=== PATIENT | female | born 1960 | race American Indian/Alaskan Native ===

== ENCOUNTER 2017-03-14 19:56 | Inpatient (IN) | payer OTHER ==
--- NOTE | 2017-03-14 20:45 | ED PDOC ---
Syncope/Near Syncope/Dizziness Time Seen by Provider: 03/14/17 20:16 Chief Complaint (Nursing): Dizziness/Lightheaded History Per: Patient History/Exam Limitations: no limitations Onset/Duration Of Symptoms: Sudden Onset (just stuntman) Current Symptoms Are (Timing): Gone Now Associated Symptoms Preceding Syncopal Episode: Worse With Standing Seizure Or Post-ictal Symptoms: None Possible Causative Factor(s): Lightheaded W/Standing Fall Associated With With Symptoms: No Severity: Mild Additional History Per: Patient Additional Complaint(s): Patient was exiting the train at work and became very dizzy and staggered off train. Patient does not remember. NO loc. no head trauma Past Medical History Reviewed: Historical Data, Nursing Documentation, Vital Signs Vital Signs: Last Vital Signs Temp 97.7 F 03/14/17 19:59 Pulse 84 03/14/17 19:59 Resp 18 03/14/17 19:59 BP 160/85 H 03/14/17 19:59 Pulse Ox 98 03/14/17 19:59 - Medical History PMH: Anemia, HTN - Family History Family History: States: Unknown Family Hx - Living Arrangements Living Arrangements: With Family - Social History Current smoker - smoking cessation education provided: No - Allergies Allergies/Adverse Reactions: Allergies Allergy/AdvReac Type Severity Reaction Status Date / Time No Known Allergies Allergy Unverified 04/09/13 09:48 Review of Systems ROS Statement: Except As Marked, All Systems Reviewed And Found Negative Constitutional: Negative for: Fever, Chills Cardiovascular: Positive for: Light Headedness. Negative for: Chest Pain, Palpitations, Paroxysmal Noc. Dyspnea, Edema Respiratory: Negative for: Cough, Shortness of Breath Gastrointestinal: Negative for: Nausea, Vomiting, Abdominal Pain Neurological: Negative for: Weakness, Numbness, Confusion, Seizures, Altered Mental Status, Headache, Dizziness Physical Exam - Reviewed Nursing Documentation Reviewed: Yes Vital Signs Reviewed: Yes - Physical Exam Appears: Positive for: Well Head Exam: Positive for: ATRAUMATIC, NORMAL INSPECTION, NORMOCEPHALIC Eye Exam: Positive for: Normal appearance, EOMI, PERRL ENT: Positive for: Pharynx Is (clear,mmm) Neck: Positive for: Normal, Painless ROM, Supple. Negative for: Decreased ROM, Limited ROM Cardiovascular/Chest: Positive for: Regular Rate, Rhythm, Chest Non Tender. Negative for: Edema, Gallop, Murmur, Bradycardia, Tachycardia Respiratory: Positive for: Normal Breath Sounds. Negative for: Decreased Breath Sounds, Accessory Muscle Use, Crackles, Rales, Rhonchi, Stridor, Wheezing , Respiratory Distress Pulses-Radial (L): 2+ Pulses-Radial (R): 2+ Gastrointestinal/Abdominal: Positive for: Normal Exam, Bowel Sounds, Soft. Negative for: Tenderness Back: Positive for: Normal Inspection. Negative for: L CVA Tenderness, R CVA Tenderness Extremity: Positive for: Normal ROM. Negative for: Tenderness, Pedal Edema, Calf Tenderness, Capillary Refill, Deformity, Swelling Neurologic/Psych: Positive for: Alert, manager business systems II-XII, Oriented, Mood/Affect (calm) , Gait (steady). Negative for: Motor/Sensory Deficits, Aphasia, Facial Droop - Laboratory Results Result Diagrams: 03/14/17 20:55 03/14/17 20:55 - ECG ECG: Positive for: Interpreted By Me ECG Rhythm: Positive for: Normal QRS, Normal ST Segment, Sinus Rhythm. Negative for: ST/T Changes Interpretation Of Abn EKG: rate of 77, no evidence of ischemia O2 Sat by Pulse Oximetry: 98 Pulse Ox Interpretation: Normal - Radiology X-Ray: Interpreted by Me X-Ray Interpretation: No Acute Disease - Progress ED Course And Treament: ct findings reviewed with Dr arevalo, advise jeana and mri in the am. pt is comfortable and stable for tele discussed with Dr parnell. pt agree's with plan. Re-evaluation Time: 23:31 Condition: Improved Disposition - Clinical Impression Clinical Impression: Dizziness, Near syncope, Neoplasm of brain causing mass effect on adjacent structures - Patient ED Disposition Is Patient to be Admitted: Yes Counseled Patient/Family Regarding: Studies Performed, Diagnosis - Disposition Disposition Time: 23:32 Condition: STABLE Forms: Neptune (Occitan) - Pt Status Changed To: Hospital Disposition Of: Inpatient - Admit Certification Admit to Inpatient:: After my assessment, the patient will require hospitalization for at least two midnights. This is because of the severity of symptoms shown, intensity of services needed, and/or the medical risk in this patient being treated as an outpatient. - POA Present On Arrival: None
[2017-03-14 21:06] LABS: BASO % 0.3 % (0.0-2.0); EOS # 0.1 K/uL (0.0-0.7); EOS % 0.9 % (0.0-4.0); HEMATOCRIT 38.2 % (34.0-47.0); LYMPH # 2.7 K/uL (1.0-4.3); LYMPH % 36.4 % (20.0-40.0); MEAN CELL VOLUME 87.9 fl (81.0-99.0); MEAN CORPUSCULAR HEMOGLOBIN 29.4 pg (27.0-31.0); MEAN CORPUSCULAR HGB CONC 33.5 g/dL (33.0-37.0); MEAN PLATELET VOLUME 7.1 fl (7.2-11.7); MONO # 0.4 K/uL (0.0-0.8); MONO % 5.7 % (0.0-10.0); NEUT # 4.1 K/uL (1.8-7.0); NEUT % 56.7 % (50.0-75.0); NRBC % 0.1 % (0.0-0.0); RED CELL DISTRIBUTION WIDTH 13.6 % (11.5-14.5); WHITE BLOOD COUNT 7.3 K/uL (4.8-10.8)
[2017-03-14 21:15] LABS: ALB/GLOB RATIO 1.5 (1.0-2.1); ALKALINE PHOSPHATASE 66 U/L (38-126); ALT/SGPT 27 U/L (9-52); AST/SGOT 39 U/L (14-36); BILIRUBIN,TOTAL 0.7 mg/dl (0.2-1.3); BLOOD UREA NITROGEN 16 mg/dl (7-17); CALCIUM 9.2 mg/dL (8.4-10.2); CARBON DIOXIDE 31 mmol/L (22-30); CHLORIDE 97 mmol/L (98-107); GFR AFRICAN-AMERICAN > 60; GLUCOSE,RANDOM 93 mg/dL (65-105); LIPASE 73 U/L (23-300); MAGNESIUM 2.4 MG/DL (1.6-2.3); POTASSIUM 4.4 MMOL/L (3.6-5.0); SODIUM 139 mmol/l (132-148); TOTAL PROTEIN 7.8 G/DL (6.3-8.2)
[2017-03-14 21:31] LABS: RBC URINE < 1 /hpf (0-3); URINE BACTERIA RARE (<OCC); URINE BILIRUBIN NEGATIVE (NEGATIVE); URINE BLOOD NEGATIVE (NEGATIVE); URINE COLOR STRAW (YELLOW); URINE GLUCOSE (UA) NEG (Normal); URINE KETONE NEGATIVE (NEGATIVE); URINE LEUKOCYTE ESTERASE NEG Leu/uL (Negative); URINE PROTEIN NEGATIVE (NEGATIVE); URINE UROBILINOGEN 0.2-1.0 mg/dL (0.2-1.0); WBC URINE < 1 /hpf (0-5)
[2017-03-14] MEDS ORDERED: Dexamethasone 10 MG in Sodium Chloride 0.9% 50 ML IV ONE (21:54)
[2017-03-14] MEDS ORDERED: Dexamethasone 10 MG in Sodium Chloride 0.9% 50 ML IVPB STA (23:49)
[2017-03-15] MEDS: Dexamethasone 6 MG in Sodium Chloride 0.9% 50 ML IVPB SCH ×3 (05:20→16:18)
--- NOTE | 2017-03-15 08:33 | CT ---
PROCEDURE: CT HEAD WITHOUT CONTRAST. HISTORY: nr syncope COMPARISON: None available. TECHNIQUE: Axial computed tomography images were obtained through the head/brain without intravenous contrast. Radiation dose: Total exam DLP = 841.77 mGy-cm. This CT exam was performed using one or more of the following dose reduction techniques: Automated exposure control, adjustment of the mA and/or kV according to patient size, and/or use of iterative reconstruction technique. FINDINGS: HEMORRHAGE: No intracranial hemorrhage. BRAIN: There is approximately 5 x 4 centimeter mass lesion at the left lateral ventricle. The mass likely arise at the septum pellucidum at or adjacent to the left foramen of Monro and contains coarse calcification and foci of relatively low attenuation. Findings suspicious for neoplasm such as but not limited to ependymoma, central neurocytoma, subependymoma and subependymal giant cell astrocytoma. There is mild edema adjacent to the left lateral ventricle in the left temporal and frontal lobe. No atrophy or chronic microvascular ischemic changes. VENTRICLES: There is [id number] dilatation of the left lateral ventricle especially the mid and posterior portion. CALVARIUM: Unremarkable. PARANASAL SINUSES: Unremarkable as visualized. No significant inflammatory changes. MASTOID AIR CELLS: Unremarkable as visualized. No inflammatory changes. OTHER FINDINGS: None. IMPRESSION: 5 centimeter mass lesion contains coarse calcification at the left lateral ventricle likely arise from the septum pellucidum at or adjacent to the foramen of Joshua. The differential diagnosis includes but not limited to ependymoma, central neurocytoma, subependymoma and subependymal giant cell astrocytoma. Further assessment by enhanced MRI is recommended. Mild left lateral ventricle hydrocephalus prominent at the mid and posterior horn. Mild to moderate edema seen at the left frontal and temporal lobe adjacent to the left lateral ventricle likely due to acute hydrocephalus and or due to intraventricular mass. Preliminary report was submitted by [facility].
[2017-03-15] MEDS ORDERED: Gadodiamide 287 MG/ML VIAL (15ML) IV ONE (08:54)
[2017-03-15] MEDS ORDERED: Patient's Own Med (Olmesartan/Hydrochlorothiazide [Benicar Hct 40-12.5 Mg Tablet] 1 TAB) PO SCH (09:00)
[2017-03-15] MEDS ORDERED: AMLODIPINE BESYLATE PO SCH ×2 (09:00)
[2017-03-15] MEDS ORDERED: BENAZEPRIL PO SCH ×2 (09:00)
--- NOTE | 2017-03-15 10:16 | RAD ---
HISTORY: near syncope COMPARISON: No prior. FINDINGS: LUNGS: The lungs are well inflated and clear. PLEURA: No significant pleural effusion identified, no pneumothorax apparent. CARDIOVASCULAR: Normal. OSSEOUS STRUCTURES: No significant abnormalities. VISUALIZED UPPER ABDOMEN: Normal. OTHER FINDINGS: None. IMPRESSION: No active pulmonary disease.
--- NOTE | 2017-03-15 10:51 | MRI ---
PROCEDURE: MRI BRAIN WITH AND WITHOUT CONTRAST HISTORY: brain mass COMPARISON: Comparison is made to the previous CT dated 03/14/2017. TECHNIQUE: Multiplanar, multisequence MR images of the brain were obtained with and without intravenous contrast enhancement. 17 cc of Omniscan were injected intravenously. FINDINGS: HEMORRHAGE: Questionable trace left lateral intra ventricular hemorrhage. DWI: No evidence of acute or subacute infarctions. BRAIN PARENCHYMA: Again seen is a heterogeneous enhancing mass lesion contains small foci of cystic formation and foci of hypo intense T1 and T2 signal corresponding to the coarse calcifications seen in the previous CT. The mass is seen at the left lateral ventricle crossing the midline and compressing on the right lateral ventricle. The mass cannot be from the septum pellucidum and the lateral wall of the left lateral ventricle. The mass either obstructing or compressing on the foramen of Joshua. There is a fairly homogeneous enhancing mass lesion at the suprasellar region measures 15.3 x 13.1 millimeter. This mass cannot be from the optic chiasm and abuts the internal carotid arteries. The mass is seen at the midline and cannot be from the infundibulum without evidence of infundibular deviation. ENHANCEMENT: The above mentioned left intraventricular mass demonstrates heterogeneous enhancement. The suprasellar mass demonstrate fairly homogeneous enhancement. VENTRICLES: There is moderate dilatation of the mid and posterior portion of the left lateral ventricle including the temporal and occipital horns. The frontal horn of the left lateral ventricle is slightly dilated. CRANIUM: Unremarkable. ORBITS: Grossly unremarkable. PARANASAL SINUSES/MASTOIDS: Clear VASCULAR SYSTEM: Skull base flow voids intact. OTHER FINDINGS: None . IMPRESSION: Heterogeneous enhancing mass lesion contains small cystic formation and foci of calcification again noted at the left lateral ventricle measures 5.3 centimeter in the largest transverse diameter. The differential diagnosis again includes malignant neoplasm such as but not limited to ependymoma central neurocytoma, ependymal giant cell astrocytoma, neoplasm of the choroid plexus and intraventricular metastasis. The differential diagnosis also includes benign lesion such as meningioma. Homogeneous enhancing suprasellar midline mass lesion measures 1.5 x 1.3 centimeter cannot be from the optic chiasm . The differential diagnosis also includes neoplasm such as metastasis, hypothalamus -chiasmatic glioma, Ganglioglioma and Choristoma. The possibility of other tumor such as craniopharyngioma and germinoma is less likely. Moderately dilated left lateral ventricle including the mid portion, temporal and occipital horns and slightly dilated frontal horn of the left lateral ventricle.
--- NOTE | 2017-03-15 11:22 | CARD ---
APPROVED REPORT EKG Measurement Heart [id number] <Conclusion> Normal sinus rhythm Possible Left atrial enlargement Left ventricular hypertrophy Cannot rule out Septal infarct, age undetermined Abnormal ECG
[2017-03-15 19:47] VITALS: BP 129/50; PULSE 83; RESP 10; TEMP 98.8; O2SAT 100
[2017-03-15] MEDS ORDERED: Apap-Butalbital-Caffeine 325-50-40mg Tab PO SCH (22:00)
--- NOTE | 2017-03-15 23:42 | CON ---
DATE: 03/15/2017 CHIEF COMPLAINT: Dizziness and headache. HISTORY OF PRESENT ILLNESS: The patient is a 56-year-old woman with history of hypertension and anemia, who has been having diffuse pressure headaches over the past 4 weeks and was exiting the train and often became very dizzy and felt lightheaded, was staggering off the train, but no loss of conscious, no head trauma. She underwent an MRI of the brain in [facility], where the heterogenous enhancing mass containing some small cystic formation at foci of calcification again noted in the left lateral ventricle measuring 5.3 cm in the largest transverse diameter. There is a mild mass effect on the right lateral ventricle. Differential most likely this homogenous suprasellar mass lesion measured 1.5 x 1.3 cm and cannot be from the optic chiasm. There is a moderately dilated left lateral ventricle including the mid portion of the temporal and occipital horns certainly dilated, frontal horn of the left lateral ventricle, all could be consistent with a possible central neurocytoma versus glioma. Neurosurgery has evaluated the patient and both of us agreed for that she needs to be transferred to a tertiary care center where this form of procedure and operation is provided by an advanced neurosurgical team probably will be transferred to [facility], awaiting bed at this time. Currently, Romberg sign is negative. She has mild headache, but not diffuse, no vomiting. She is on Decadron 6 mg q. 6 hours. No difficulty with gait at this time. No dizziness. No nausea. PAST MEDICAL HISTORY: Hypertension, dyslipidemia and anemia. FAMILY HISTORY: Noncontributory. Her sister apparently had a mass in the past. SOCIAL HISTORY: No illicit drug use, smoking or ETOH abuse. ALLERGIES: NO KNOWN DRUG ALLERGIES. MEDICATIONS: Reviewed by nurse per reconciliation sheet. REVIEW OF SYSTEMS: A 14-point review of systems is negative except per the HPI. PHYSICAL EXAMINATION VITAL SIGNS: Temperature is 98.1, pulse rate of 81, blood pressure is 137/90, respiratory rate of 18, and oxygen saturation is 98% on room air. GENERAL: The patient is seen up in bed, in no acute distress. HEENT: Head is atraumatic and normocephalic. PERRLA. Extraocular muscles are intact. NECK: Supple. No JVD. No adenopathy noted. LUNGS: Clear to auscultation. No adventitious sounds. HEART: S1 and S2, normal rate and rhythm. No murmurs, rubs, or gallops. ABDOMEN: Soft, nontender, and nondistended. Bowel sounds are present. EXTREMITIES: No clubbing. No cyanosis. Peripheral pulses 2+ bilaterally. NEUROLOGIC: The patient is alert and oriented to person, place, month, and year. Speech is fluent without any errors. Cranial nerves II through XII are intact. Motor exam: Moves all extremities equally. Toes are downgoing bilaterally. Sensory exam: Light touch pinprick, proprioception, and vibration is intact. DTRs are 2+ throughout. Romberg is negative. LABORATORY DATA: Sodium is 139, potassium is 4.4, chloride is 97, carbon dioxide is 31, BUN of 16, creatinine of 0.7, random glucose 93. ASSESSMENT AND PLAN: This is a 56-year-old woman, who presented with history of hypertension and anemia, who has been having diffuse pressure headache for the past 4 weeks and was getting off the train, was dizzy and had staggering gait with no loss of consciousness, found to have heterogenous enhancing mass containing small cystic formation at foci of calcification, again measuring 5.3 cm in the largest transverse diameter and a homogenous enhancing suprasellar midline mass measuring 1.5 x 1.3 cm which cannot be from the optic chiasm with moderately dilated left lateral ventricle and some mass effect with differential consistent with ependymoma, central neurocytoma or possible glioma. At this time, I feel like she needs an aggressive neurosurgical intervention and I agree with neurosurgery, needs to be transferred to a higher tertiary care and heterogenous enhancing mass is likely the reason for diffuse pressure headaches and dizziness. At this time, I recommend; 1. Awaiting bed, transfer to [facility] for more advanced neurosurgical intervention. 2. Continue with dexamethasone 6 mg IV q. 6 hours. 3. Keep her blood pressure between 120-130 mmHg. 4. Continue Fioricet 1 tab p.o. q. 6 hours p.r.n. for acute onset of headache and continue current present medical management, awaiting for transfer. The patient needs to be transferred to [facility]. Thank you for this consult. Maurizio Balderas MD
--- NOTE | 2017-03-16 02:03 | CON ---
DATE: 03/15/2017 HISTORY OF PRESENT ILLNESS: Ms. Galo is a rather unfortunate 56-year-old lady who has been having rather severe headaches for the past month. Apparently, she had some blood work done, but never had an imaging done. The night of admission, was found a kind of confused, coming out of the train station, was taken by a friend to [place] [facility], where CT documented a rather large intracranial mass, she was admitted. Upon consultation with myself at that time, we placed her on IV Decadron with head of bed elevation. We planned to obtain an MRI with gadolinium in the morning which in fact she had. Interviewing her today, her symptoms are consistent with that above. In fact, she feels better since being placed on the steroids. PAST MEDICAL HISTORY: Relatively benign. The rest of her social history, medications, allergies reviewed in the EMR. PHYSICAL EXAMINATION: GENERAL: She is bright, awake, and alert. Her speech and mental status are within normal limits. HEENT: Pupils are equal and reactive. EOMs are full. NEUROLOGIC: Cranial nerves are intact. She has a very minimal right-sided drift. Good strength throughout. May have a little bit weakness in the right distal lower extremity. Gait was not tested. IMAGING STUDIES: Show a very large lobulated tumor occupied predominantly the left lateral ventricle both in the midportion invaginating across the midline into the right thigh with some unilateral left hydrocephalus. It is irregularly enhanced, it is partially cystic and partially calcified. IMPRESSION AND PLAN: A very unusual tumor mostly . I had a very long talk with the patient, I explained to her as she is in such a good neurological shape, with this type of a deep and very unusual tumor, I would recommend treatment in a facility that handles these more frequently with upgraded equipments such as neurosurgical intensive care unit, neuro navigational system, etc. I suggested perhaps transfer to [facility]. After some thought and consulting with her children, she accepted to go ahead and I have actually written down a process of making her arrangements for her to be transferred there for further care. Enrico Rodriguez MD
--- NOTE | 2017-03-16 02:57 | HP ---
HISTORY OF PRESENT ILLNESS: The patient is a 56-year-old female who was admitted via the emergency room following an episode of dizziness while she was getting off a train. She does not remember if she lost consciousness or had any form of head trauma, but has a past medical history of anemia and hypertension and headaches for the past 1 month. She had been worked up by her primary care and the outside with blood work but did not have a brain scan. The brain scan in the emergency room was compatible with a lesion in the brain, she was therefore admitted for workup and therapy of near syncope. PAST MEDICAL HISTORY: Remarkable for anemia and hypertension. FAMILY HISTORY: Unremarkable except for a cousin who had a brain tumor. REVIEW OF SYSTEMS: Essentially unremarkable. SOCIAL HISTORY: Does not smoke or drink. PHYSICAL EXAMINATION: GENERAL: The patient is alert, oriented, appears to be comfortable at present. VITAL SIGNS: Remarkable for blood pressure of 144/78 with a pulse of 79, respiratory rate is 20. She is afebrile. O2 saturation 96% on room air. SKIN: Shows fair turgor. HEENT: Pupils are equal and reactive to light and accommodation. JVP flat. Mouth shows fair hygiene. LUNGS: Clear. HEART: Regular. No murmurs or gallop. ABDOMEN: Soft, nontender. No organomegaly. EXTREMITIES: Shows no edema or cyanosis. CENTRAL NERVOUS SYSTEM: No gross deficits. LABORATORY DATA: WBC of 7.3, hemoglobin 12.8, platelet count of 278,000. Sodium 139, potassium 4.4, BUN of 16, creatinine 0.7. Magnesium level 2.4. AST 39. Toxicology, negative urine. MRI of the brain is remarkable for heterogeneous enhanced marked lesion, which contains more cystic formation noted at the left lateral ventricle measured about 5.3 cm in largest transverse diameter. DIFFERENTIAL DIAGNOSES: Include neoplasm, central neurocytoma, giant cell astrocytoma, heterogenous enhanced suprasellar midline marked lesion measuring 1.5 x 1.3 cm, cannot be from the optic chiasma. Differential diagnoses also includes neoplasm such as metastasis, hypothalamic-chiasmatic glioma, ganglioglioma, and choristoma. The possibility of further tumor, such as craniopharyngioma and germinoma is less likely. Moderately dilated left lateral ventricle including meet position temporal and occipital horns slightly dilated. Chest x-ray, no active pulmonary disease. EKG, normal sinus rhythm. Possible left atrial enlargement, left ventricular hypertrophy, cannot rule out septal infarct, age undetermined. IMPRESSION: Dizziness or near syncope secondary to brain lesion. PLAN: Neurosurgery evaluation. IV Decadron to decrease edema of the brain and hydrocephalus. The patient was seen by the neurosurgeon already and offered possible transferred to [facility] or in [place], [place], for appropriate therapy of brain lesion. She will discuss with her family and inform us of her decision. Ambrocio Mcneill MD
--- NOTE | 2017-03-16 10:40 | CP.PCM.DIS ---
Provider - Provider Date of Admission: 03/14/17 23:50 Attending physician: Ambrocio Mcneill MD Time Spent in preparation of Discharge (in minutes): 30 Diagnosis - Discharge Diagnosis (1) Dizziness Status: Acute (2) Near syncope Status: Acute (3) Neoplasm of brain causing mass effect on adjacent structures Status: Acute Hospital Course - Lab Results Lab Results: Most Recent Lab Values WBC 7.3 K/uL (4.8-10.8) 03/14/17 20:55 RBC 4.35 Mil/uL (3.80-5.20) 03/14/17 20:55 Hgb 12.8 g/dL (12.0-16.0) 03/14/17 20:55 Hct 38.2 % (34.0-47.0) 03/14/17 20:55 MCV 87.9 fl (81.0-99.0) 03/14/17 20:55 MCH 29.4 pg (27.0-31.0) 03/14/17 20:55 MCHC 33.5 g/dL (33.0-37.0) 03/14/17 20:55 RDW 13.6 % (11.5-14.5) 03/14/17 20:55 Plt Count 278 K/uL (130-400) 03/14/17 20:55 MPV 7.1 fl (7.2-11.7) L 03/14/17 20:55 Neut % (Auto) 56.7 % (50.0-75.0) 03/14/17 20:55 Lymph % (Auto) 36.4 % (20.0-40.0) 03/14/17 20:55 [place] % (Auto) 5.7 % (0.0-10.0) 03/14/17 20:55 Eos % (Auto) 0.9 % (0.0-4.0) 03/14/17 20:55 Baso % (Auto) 0.3 % (0.0-2.0) 03/14/17 20:55 Neut # 4.1 K/uL (1.8-7.0) 03/14/17 20:55 Lymph # 2.7 K/uL (1.0-4.3) 03/14/17 20:55 [place] # 0.4 K/uL (0.0-0.8) 03/14/17 20:55 Eos # 0.1 K/uL (0.0-0.7) 03/14/17 20:55 Baso # 0.0 K/uL (0.0-0.2) 03/14/17 20:55 PT 11.8 Seconds (9.8-13.1) 03/14/17 20:55 INR 1.1 (0.9-1.2) 03/14/17 20:55 APTT 29.0 Seconds (25.6-37.1) 03/14/17 20:55 Sodium 139 mmol/l (132-148) 03/14/17 20:55 Potassium 4.4 MMOL/L (3.6-5.0) 03/14/17 20:55 Chloride 97 mmol/L (98-107) L 03/14/17 20:55 Carbon Dioxide 31 mmol/L (22-30) H 03/14/17 20:55 Anion Gap 15 (10-20) 03/14/17 20:55 BUN 16 mg/dl (7-17) 03/14/17 20:55 Creatinine 0.7 mg/dL (0.7-1.2) 03/14/17 20:55 Est GFR ( Amer) > 60 03/14/17 20:55 Est GFR (Non-Af Amer) > 60 03/14/17 20:55 POC Glucose (mg/dL) 102 mg/dL (65-110) 03/14/17 20:19 Random Glucose 93 mg/dL (65-105) 03/14/17 20:55 Calcium 9.2 mg/dL (8.4-10.2) 03/14/17 20:55 Magnesium 2.4 MG/DL (1.6-2.3) H 03/14/17 20:55 Total Bilirubin 0.7 mg/dl (0.2-1.3) 03/14/17 20:55 AST 39 U/L (14-36) H 03/14/17 20:55 ALT 27 U/L (9-52) 03/14/17 20:55 Alkaline Phosphatase 66 U/L (38-126) 03/14/17 20:55 Troponin I < 0.0120 ng/mL (0.00-0.120) 03/14/17 20:55 Total Protein 7.8 G/DL (6.3-8.2) 03/14/17 20:55 Albumin 4.6 g/dL (3.5-5.0) 03/14/17 20:55 Globulin 3.2 gm/dL (2.2-3.9) 03/14/17 20:55 Albumin/Globulin Ratio 1.5 (1.0-2.1) 03/14/17 20:55 Lipase 73 U/L (23-300) 03/14/17 20:55 Urine Color Straw (YELLOW) 03/14/17 21:10 Urine Clarity Clear (Clear) 03/14/17 21:10 Urine pH 7.0 (5.0-8.0) 03/14/17 21:10 Ur Specific [place] 1.009 (1.003-1.030) 03/14/17 21:10 Urine Protein Negative mg/dL (NEGATIVE) 03/14/17 21:10 Urine Glucose (UA) Neg mg/dL (Normal) 03/14/17 21:10 Urine Ketones Negative mg/dL (NEGATIVE) 03/14/17 21:10 Urine Blood Negative (NEGATIVE) 03/14/17 21:10 Urine Nitrate Negative (NEGATIVE) 03/14/17 21:10 Urine Bilirubin Negative (NEGATIVE) 03/14/17 21:10 Urine Urobilinogen 0.2-1.0 mg/dL (0.2-1.0) 03/14/17 21:10 Ur Leukocyte Esterase Neg [place]/uL (Negative) 03/14/17 21:10 Urine RBC (Auto) < 1 /hpf (0-3) 03/14/17 21:10 Urine Microscopic WBC < 1 /hpf (0-5) 03/14/17 21:10 Ur Squamous Epith Cells 1 /hpf (0-5) 03/14/17 21:10 Urine Bacteria Rare (<OCC) 03/14/17 21:10 Urine Opiates Screen Negative (NEGATIVE) 03/14/17 21:30 Urine Methadone Screen Negative (NEGATIVE) 03/14/17 21:30 Ur Barbiturates Screen Negative (NEGATIVE) 03/14/17 21:30 Ur Phencyclidine Scrn Negative (NEGATIVE) 03/14/17 21:30 Ur Amphetamines Screen Negative (NEGATIVE) 03/14/17 21:30 U Benzodiazepines Scrn Negative (NEGATIVE) 03/14/17 21:30 U Oth Cocaine Metabols Negative (NEGATIVE) 03/14/17 21:30 U Cannabinoids Screen Negative (NEGATIVE) 03/14/17 21:30 - Hospital Course Hospital Course: DIZZINESS IMPROVED Discharge Exam - Head Exam Head Exam: ATRAUMATIC, NORMAL INSPECTION, NORMOCEPHALIC - Eye Exam Eye Exam: EOMI, Normal appearance, PERRL Pupil Exam: NORMAL ACCOMODATION, PERRL - GI/Abdominal Exam GI & Abdominal Exam: Normal Bowel Sounds - Rectal Exam Rectal Exam: NORMAL INSPECTION - Neurological Exam Neurological exam: Alert, CN II-XII Intact, Normal Gait, Oriented x3, Reflexes Normal - Psychiatric Exam Psychiatric exam: Normal Affect, Normal Mood - Skin Skin Exam: Dry, Intact, Normal Color, Warm Discharge Plan - Discharge Medications Prescriptions: Dexamethasone [Decadron] 4 mg IV DAILY #1 vial - Follow Up Plan Condition: STABLE Disposition: HOME/ ROUTINE Instructions: Near Syncope (ED) Additional Instructions: PATIENT FOR DISCHARGE TO [facility] UNDER THE CARE OF DR.JEFFREY BECK,NEURO SURGEON
== END 2017-03-15 21:05 | disposition short-term general hospital (02) | DRG 55 ==
LOC: H.ER 19:56 → H.ERHOLD 23:50 → H.TEL 03-15 01:01
PROVIDERS: ADMIT Internal Medicine Pulmonary Disease; ATTEND Internal Medicine Pulmonary Disease
DX: D49.6 Neoplasm of unspecified behavior of brain (principal); I10 Essential (primary) hypertension; E78.5 Hyperlipidemia, unspecified; R42 Dizziness and giddiness; D64.9 Anemia, unspecified; R51 Headache; R55 Syncope and collapse

== ENCOUNTER 2017-06-25 18:38 | Emergency (ER) | payer OTHER ==
--- NOTE | 2017-06-25 20:46 | ED PDOC ---
HPI: CCC, URI, Sore Throat Time Seen by Provider: 06/25/17 20:00 Chief Complaint (Nursing): Flu-like Symptoms Chief Complaint (Provider): Cough and fever History Per: Patient History/Exam Limitations: no limitations Onset/Duration Of Symptoms: Days (x1) Current Symptoms Are (Timing): Still Present Location Of Pain: denies: Throat Associated Symptoms: Fever, Cough (productive), Sputum (yellow), Other (body aches, malaise, generalized weakness). denies: Sore Throat Ear Symptoms: Bilateral: None Pain Scale Rating Of: 9 Additional Complaint(s): Rosalba Galo is a 56 year old female, with a past medical history of brain cancer, and hypertension, who presents to the emergency department complaining of a productive cough with yellow sputum and fever associated with shaking chills, body aches, malaise, fatigue, and generalized weakness onset for x1 week. Patient reports rhinorrhea but denies any sore throat. She has been only taking Robitussin. She had an MRI today to evaluate a brain mass and was told she had a fever. Patient has an oncologist in [email or web address]] who is following her for brain cancer. No further medical complaints. PMD: None provided. Past Medical History Reviewed: Historical Data, Nursing Documentation, Vital Signs Vital Signs: Last Vital Signs Temp 98.7 F 06/25/17 22:52 Pulse 85 06/25/17 22:52 Resp 19 06/25/17 22:52 BP 133/77 06/25/17 22:52 Pulse Ox 99 06/25/17 23:25 - Medical History PMH: Anemia, HTN Denies: HIV, Chronic Kidney Disease - Surgical History Other surgeries: hysterectomy and repair of intestinal perforation. - Family History Family History: States: Unknown Family Hx - Social History Current smoker - smoking cessation education provided: No Alcohol: None Drugs: Denies - Home Medications Home Medications: Ambulatory Orders Medication Instructions Recorded Acetaminophen/Butalbital/Caf 1 tab PO Q6 tab 03/15/17 [Fioricet] Amlodipine Besylate/Benazepril 1 tab PO DAILY 03/15/17 [Lotrel 5-10 mg Capsule] Dexamethasone [Decadron] 4 mg IV DAILY #1 vial 03/15/17 Home Med [Home Med] 03/15/17 Olmesartan/Hydrochlorothiazide 1 tab PO DAILY 03/15/17 [Benicar Hct 40-12.5 mg Tablet] Acetaminophen [Tylenol Extra 1,000 mg PO Q6 PRN #60 tablet 06/25/17 Strength] Albuterol HFA [Ventolin HFA 90 2 puff IH Q4H PRN #1 inh 06/25/17 mcg/actuation (8 g)] Azithromycin 1 tab PO DAILY #6 tab 06/25/17 Prednisone 50 mg PO DAILY #5 tablet 06/25/17 - Allergies Allergies/Adverse Reactions: Allergies Allergy/AdvReac Type Severity Reaction Status Date / Time No Known Allergies Allergy Verified 06/25/17 19:43 Review of Systems ROS Statement: Except As Marked, All Systems Reviewed And Found Negative (and as per HPI) Constitutional: Positive for: Fever, Chills, Weakness (generalized), Malaise, Other (body aches) ENT: Positive for: Nose Discharge (rhinorrhea). Negative for: Throat Pain Respiratory: Positive for: Cough (productive), Sputum (yellow) Neurological: Positive for: Weakness (Chronic. right sided due to brain mass. Gait unstable and uses cane) Physical Exam - Reviewed Nursing Documentation Reviewed: Yes Vital Signs Reviewed: Yes - Physical Exam Appears: Positive for: Non-toxic, No Acute Distress Head Exam: Positive for: ATRAUMATIC, NORMOCEPHALIC Skin: Positive for: Warm, Dry ENT: Positive for: Pharynx Is (clear) Neck: Positive for: Painless ROM, Supple Cardiovascular/Chest: Positive for: Regular Rate, Rhythm, Chest Non Tender. Negative for: Murmur Respiratory: Positive for: Normal Breath Sounds. Negative for: Rales, Wheezing , Respiratory Distress Gastrointestinal/Abdominal: Positive for: Soft. Negative for: Tenderness Back: Positive for: Normal Inspection Neurologic/Psych: Positive for: Alert, Oriented (x3), Mood/Affect (normal/flat) - Laboratory Results Result Diagrams: 06/25/17 21:28 06/25/17 21:28 - ECG O2 Sat by Pulse Oximetry: 100 (RA) Pulse Ox Interpretation: Normal Medical Decision Making Medical Decision Making: Initial Impression: Cough and fever. Differential includes but not limited to: pneumonia, influenza, bronchitis, sepsis and dehydration. Initial Plan: --VBG Shock Panel --EKG --Comp metabolic Panel --Magnesium --Phosphorus --CBC w/ differential --PTT --PT --Chest two views (PA/LAT) [RAD] --Tylenol 975 mg PO --Toradol 15 mg IV --NS IV 1,000 ml @ 2,000 mls/hr --Blood culture --Urine culture --Influenza A B --Urinalysis Labs and CXR unremarkable. Scribe Attestation: Documented by Robert Kong, acting as a scribe for Idalia Mendez MD Provider Scribe Attestation: All medical record entries made by the Scribe were at my direction and personally dictated by me. I have reviewed the chart and agree that the record accurately reflects my personal performance of the history, physical exam, medical decision making, and the department course for this patient. I have also personally directed, reviewed, and agree with the discharge instructions and disposition. Disposition - Clinical Impression Clinical Impression: Influenza-like symptoms, Bronchitis Counseled Patient/Family Regarding: Studies Performed, Diagnosis, Need For Followup, Rx Given - Disposition Referrals: [facility] [Outside] [facility] [Outside] (FOLLOW UP WITH A PMD OR [facility] IN 24-48 HOURS FOR REEVALUATION) Disposition: Routine/Home Disposition Time: 22:00 Condition: IMPROVED Additional Instructions: REST AND DRINK PLENTY OF HYDRATING FLUIDS TAKE MEDICATIONS PRESCRIBED RETURN TO ER FOR WORSENING SYMPTOMS Prescriptions: Acetaminophen [Tylenol Extra Strength] 1,000 mg PO Q6 PRN #60 tablet PRN Reason: Fever >100.4 F Albuterol HFA [Ventolin HFA 90 mcg/actuation (8 g)] 2 puff IH Q4H PRN #1 inh PRN Reason: ASTHMA Azithromycin 1 tab PO DAILY #6 tab Prednisone 50 mg PO DAILY #5 tablet Instructions: Acute Bronchitis (ED), Viral Syndrome (ED)
[2017-06-25 21:33] LABS: BASO % 0.6 % (0.0-2.0); EOS % 0.2 % (0.0-4.0); HEMATOCRIT 32.8 % (34.0-47.0); LYMPH # 0.6 K/uL (1.0-4.3); LYMPH % 11.7 % (20.0-40.0); MEAN CELL VOLUME 91.2 fl (81.0-99.0); MEAN CORPUSCULAR HGB CONC 32.9 g/dL (33.0-37.0); MEAN PLATELET VOLUME 7.1 fl (7.2-11.7); MONO # 0.7 K/uL (0.0-0.8); MONO % 13.6 % (0.0-10.0); NEUT # 3.9 K/uL (1.8-7.0); NEUT % 73.9 % (50.0-75.0); NRBC % 0.1 % (0.0-0.0); RED CELL DISTRIBUTION WIDTH 14.4 % (11.5-14.5); WHITE BLOOD COUNT 5.3 K/uL (4.8-10.8)
[2017-06-25 21:49] LABS: ALB/GLOB RATIO 1.2 (1.0-2.1); ALKALINE PHOSPHATASE 63 U/L (38-126); ALT/SGPT 44 U/L (9-52); AST/SGOT 45 U/L (14-36); BILIRUBIN,TOTAL 0.5 mg/dl (0.2-1.3); BLOOD UREA NITROGEN 11 mg/dl (7-17); CALCIUM 9.2 mg/dL (8.4-10.2); CARBON DIOXIDE 34 mmol/L (22-30); CHLORIDE 94 mmol/L (98-107); GFR AFRICAN-AMERICAN > 60; GLUCOSE,RANDOM 111 mg/dL (65-105); PHOSPHOROUS 3.6 mg/dl (2.5-4.5); POTASSIUM 3.5 MMOL/L (3.6-5.0); SODIUM 137 mmol/l (132-148); TOTAL PROTEIN 7.5 G/DL (6.3-8.2)
[2017-06-25 21:50] LABS: VENOUS BLOOD GAS BASE EXCESS 10.7 mmol/L (0.0-2.0); VENOUS BLOOD GAS PCO2 56 mmHg (40-60); VENOUS BLOOD PH 7.43 (7.32-7.43)
[2017-06-25] MEDS: Sodium Chloride 0.9% 1,000 ML IV STA ×2 (21:51→22:58)
[2017-06-25 22:54] VITALS: BP 133/77; PULSE 85; RESP 19; TEMP 98.7
--- NOTE | 2017-06-26 10:35 | RAD ---
HISTORY: Sepsis Patient COMPARISON: Chest radiograph dated 03/14/2017. TECHNIQUE: Chest PA and lateral FINDINGS: LUNGS: No active pulmonary disease. PLEURA: No significant pleural effusion identified. No pneumothorax apparent. CARDIOVASCULAR: Normal. OSSEOUS STRUCTURES: No significant abnormalities. VISUALIZED UPPER ABDOMEN: Right upper quadrant surgical clips redemonstrated. OTHER FINDINGS: None. IMPRESSION: No active disease.
--- NOTE | 2017-06-26 11:17 | CARD ---
APPROVED REPORT EKG Measurement Heart [id number] <Conclusion> Normal sinus rhythm Possible Left atrial enlargement Left ventricular hypertrophy Cannot rule out Septal infarct, age undetermined Abnormal ECG
[2017-06-28 20:03] VITALS: O2SAT 100
== END 2017-06-25 23:10 | disposition home or self-care (01) ==
LOC: H.ER 18:38
DX: J40 Bronchitis, not specified as acute or chronic (principal); I10 Essential (primary) hypertension; Z90.710 Acquired absence of both cervix and uterus
CPT/HCPCS: 71020; 80053; 82803; 83735; 84100; 85025; 85610; 85730; 87040; 87804; 93005; 96374; 99284; J1885; J7040

== ENCOUNTER 2017-12-17 11:52 | Inpatient (IN) | payer OTHER ==
--- NOTE | 2017-12-17 12:45 | ED PDOC ---
HPI: General Adult Time Seen by Provider: 12/17/17 12:10 Chief Complaint (Nursing): Weakness/Neurological Deficit Chief Complaint (Provider): Weakness/Neurological Deficit History Per: Patient History/Exam Limitations: no limitations Onset/Duration Of Symptoms: Days (x 2) Additional Complaint(s): 57 year old female with a history of metastatic breast and brain cancer presents to the ED with generalized weakness. She states she fell 2 days ago and that her baseline is usually unsteady. Patient reports she was sent here by her PMD for a low WBC count. Her last chemotherapy treatment and blood work was last Saturday. She denies any bleeding, fever, chest pain and headache. PMD: Dr. Naseem Conroy Past Medical History Reviewed: Historical Data, Nursing Documentation, Vital Signs Vital Signs: Last Vital Signs Temp 99 F 12/17/17 15:44 Pulse 99 H 12/17/17 15:44 Resp 19 12/17/17 15:44 BP 156/90 H 12/17/17 15:44 Pulse Ox 98 12/17/17 15:42 - Medical History PMH: Anemia, Diabetes, HTN Denies: HIV, Chronic Kidney Disease Other PMH: Breast CA with brain mets - Surgical History Surgical History: No Surg Hx - Family History Family History: States: Unknown Family Hx - Home Medications Home Medications: Ambulatory Orders Medication Instructions Recorded Aspirin [Ecotrin] 81 mg PO DAILY 12/17/17 Dexamethasone [Decadron] 2 mg PO BID 12/17/17 Famotidine [Pepcid] 20 mg PO Q12 12/17/17 MetFORMIN [glucoPHAGE] 1,000 mg PO BID 12/17/17 Olmesartan Medoxomil [Benicar] 10 mg PO DAILY 12/17/17 Rosuvastatin Calcium [Crestor] 10 mg PO HS 12/17/17 SITagliptin [Januvia] 50 mg PO DAILY 12/17/17 amLODIPine [Norvasc] 10 mg PO QPM 12/17/17 levETIRAcetam [Keppra] 500 mg PO Q12 12/17/17 - Allergies Allergies/Adverse Reactions: Allergies Allergy/AdvReac Type Severity Reaction Status Date / Time No Known Allergies Allergy Verified 06/25/17 19:43 Review of Systems ROS Statement: Except As Marked, All Systems Reviewed And Found Negative Constitutional: Positive for: Other (low WBC and generalized weakness). Negative for: Fever Cardiovascular: Negative for: Chest Pain Neurological: Negative for: Headache Physical Exam - Reviewed Nursing Documentation Reviewed: Yes Vital Signs Reviewed: Yes - Physical Exam Appears: Positive for: Non-toxic, No Acute Distress Head Exam: Positive for: ATRAUMATIC, NORMAL INSPECTION, NORMOCEPHALIC Skin: Positive for: Normal Color, Warm, DRY Eye Exam: Positive for: EOMI, PERRL, Other (pale conjunctiva ) Neck: Positive for: Normal, Painless ROM, Supple Cardiovascular/Chest: Positive for: Tachycardia (mildly) Respiratory: Positive for: Normal Breath Sounds. Negative for: Respiratory Distress Gastrointestinal/Abdominal: Positive for: Normal Exam, Soft Extremity: Positive for: Normal ROM. Negative for: Deformity Neurologic/Psych: Positive for: Alert, Oriented. Negative for: Motor/Sensory Deficits - Laboratory Results Result Diagrams: 12/17/17 13:05 12/17/17 13:05 - ECG O2 Sat by Pulse Oximetry: 98 (RA) Pulse Ox Interpretation: Normal Medical Decision Making Medical Decision Making: Time; 12:42 Impression: neutropenia and pancytopenia from chemo r/o infectious source Initial Plan: --Blood type and screen --VBG --CMP --CBC --PTT --Prothrombin time --Blood cx --Urine cx --UA Patient will most likely require injection of Neulasta due to WBC of .5 L Time; 13:21 --ABG --Insulin 8 units IV --NS IV Time; 13:45 --discussed case with Dr. Lau as well as the patient. --Dr. Theodore Boss, medical assistant supervisor, will be consulted. Patient will be admitted to Dr. Lau. Diagnosis is pancytopenia, hyperglycemia and neutropenia. Scribe Attestation: Documented by Casie Becker, acting as a scribe for Luis Wiseman MD Provider Scribe Attestation: All medical record entries made by the Scribe were at my direction and personally dictated by me. I have reviewed the chart and agree that the record accurately reflects my personal performance of the history, physical exam, medical decision making, and the department course for this patient. I have also personally directed, reviewed, and agree with the discharge instructions and disposition. Disposition - Clinical Impression Clinical Impression: Neutropenia, DM2 (diabetes mellitus, type 2), Uncontrolled diabetes mellitus - Patient ED Disposition Is Patient to be Admitted: Yes Discussed With Dr.: Sheldon Lau Doctor Will See Patient In The: Hospital Counseled Patient/Family Regarding: Studies Performed, Diagnosis - Disposition Disposition Time: 13:40 Condition: FAIR - Pt Status Changed To: Hospital Disposition Of: Inpatient - Admit Certification Admit to Inpatient:: After my assessment, the patient will require hospitalization for at least two midnights. This is because of the severity of symptoms shown, intensity of services needed, and/or the medical risk in this patient being treated as an outpatient. - POA Present On Arrival: Poor Glycemic Control
[2017-12-17 13:12] LABS: SQUAMOUS EPITHIAL < 1 /hpf (0-5); URINE BACTERIA RARE (<OCC); URINE BILIRUBIN NEGATIVE (NEGATIVE); URINE BLOOD NEGATIVE (NEGATIVE); URINE CLARITY CLEAR (Clear); URINE COLOR STRAW (YELLOW); URINE GLUCOSE (UA) >=500 mg/dL (Normal); URINE LEUKOCYTE ESTERASE NEG Leu/uL (Negative); URINE PROTEIN 30 mg/dL (NEGATIVE); URINE UROBILINOGEN 0.2-1.0 mg/dL (0.2-1.0)
[2017-12-17 13:13] LABS: EOS % 0.5 % (0.0-4.0); HEMOGLOBIN 9.7 g/dL (12.0-16.0); LYMPH # 0.4 K/uL (1.0-4.3); LYMPH % 88.4 % (20.0-40.0); MEAN CELL VOLUME 95.8 fl (81.0-99.0); MEAN CORPUSCULAR HEMOGLOBIN 32.7 pg (27.0-31.0); MEAN CORPUSCULAR HGB CONC 34.2 g/dL (33.0-37.0); MONO % 3.2 % (0.0-10.0); NEUT % 7.9 % (50.0-75.0); NRBC % 8.4 % (0.0-0.0); RBC 2.97 Mil/uL (3.80-5.20); RED CELL DISTRIBUTION WIDTH 18.4 % (11.5-14.5)
[2017-12-17 13:15] LABS: VENOUS BLOOD GAS BASE EXCESS 7.7 mmol/L (0.0-2.0); VENOUS BLOOD GAS PCO2 43 mmHg (40-60); VENOUS BLOOD GAS PO2 78 mm/Hg (30-55); VENOUS BLOOD PH 7.48 (7.32-7.43)
[2017-12-17] MEDS ORDERED: Sodium Chloride 0.9% 1,000 ML IV STA (13:21)
[2017-12-17] MEDS ORDERED: Insulin Regular 100 units/ml IV STA (13:22)
[2017-12-17 13:25] LABS: WHITE BLOOD COUNT 0.5 K/uL (4.8-10.8)
[2017-12-17 13:26] LABS: MEAN PLATELET VOLUME 8.1 fl (7.2-11.7)
[2017-12-17 13:27] LABS: ALB/GLOB RATIO 1.3 (1.0-2.1); ALBUMIN 3.8 g/dL (3.5-5.0); ALT/SGPT 229 U/L (9-52); AST/SGOT 150 U/L (14-36); BLOOD UREA NITROGEN 10 mg/dl (7-17); CALCIUM 9.5 mg/dL (8.4-10.2); GFR AFRICAN-AMERICAN > 60; GFR NON-AFRICAN AMERICAN > 60
[2017-12-17 13:39] LABS: ABG ALLEN TEST YES; ARTERIAL BLOOD GAS HCO3 32.1 mmol/L (21-28); ARTERIAL BLOOD GAS HEMOGLOBIN 10.5 g/dL (11.7-17.4); ARTERIAL BLOOD GAS PCO2 38 mm/Hg (35-45); ARTERIAL BLOOD GAS PH 7.54 (7.35-7.45); ARTERIAL BLOOD GAS PO2 90 mm/Hg (80-100); ARTERIAL BLOOD GAS TCO2 33.7 mmol/L (22-28)
[2017-12-17 13:42] LABS: PARTIAL THROMBOPLASTIN TIME 23.9 Seconds (25.6-37.1); PROTHROMBIN TIME 10.8 Seconds (9.8-13.1)
[2017-12-17] MEDS ORDERED: Insulin Regular 100 units/ml ONE (14:03)
--- NOTE | 2017-12-17 14:43 | CP.PCM.HP ---
History of Present Illness - History of Present Illness History of Present Illness: CC: Neutropenia HPI: 57 y/o woman w/ pmh of HTN, NIDDM2, stage IV brain cancer w/ metastases presents to ED for neutropenia. Patient reports she recently had chemotherapy 1 week ago and has been receiving chemo since 03/2017. Patient unsure of her baseline WBC. Patient reports general weakness but denies any pain or bleeding from gums, urine, or stool. Patient reports normal urination and regular bowel movements. Patient reports she was diagnosed w/ brain cancer over 1 year ago. Patient reports she follows up w/ PMD in [place] (Dr. Conroy). Patient denies headaches, chest pain, SOB, abdominal pain, nausea, vomiting, diarrhea, dysuria , or fever. PMD: Dr. Naseem Conroy PMH: HTN, NIDDM2, stage IV brain cancer w/ metastases meds: see med list allergies: NKDA PSH: cholecystectomy, appendectomy, hysterectomy, fibroidectomy, brain biopsy Fam: female cousin 2 months ago from breast cancer at age 57 SOC: denies smoking, alcohol, and drugs ROS: 12 points assessed and negative unless otherwise reported in HPI Present on Admission - Present on Admission Any Indicators Present on Admission: No History of DVT/PE: No History of Uncontrolled Diabetes: No Urinary Catheter: No Decubitus Ulcer Present: No Review of Systems - Review of Systems All systems: reviewed and no additional remarkable complaints except - Constitutional Constitutional: absent: Chills, Fever, Headache - EENT Eyes: absent: Change in Vision - Cardiovascular Cardiovascular: absent: Chest Pain, Palpitations - Respiratory Respiratory: absent: Cough, Dyspnea - Gastrointestinal Gastrointestinal: absent: Abdominal Pain, Diarrhea, Hematochezia, Melena, Vomiting - Genitourinary Genitourinary: absent: Dysuria - Reproductive: Female Reproductive:Female: S/P Hysterectomy - Menstruation Menstruation: S/P Hysterectomy - Integumentary Integumentary: absent: Rash - Neurological Neurological: absent: Dizziness, Headaches Past Patient History - Past Medical History & Family History Past Medical History?: Yes - Past Social History Smoking Status: Never Smoked - CARDIAC Hx Hypertension: Yes - PULMONARY Hx Respiratory Disorders: No - NEUROLOGICAL Hx Neurological Disorder: No Other/Comment: Brain CA - HEENT Hx HEENT Problems: No - RENAL Hx Chronic Kidney Disease: No - ENDOCRINE/METABOLIC Hx Endocrine Disorders: No - HEMATOLOGICAL/ONCOLOGICAL Hx Anemia: Yes Hx Human Immunodeficiency Virus (HIV): No - INTEGUMENTARY Hx Dermatological Problems: No - MUSCULOSKELETAL/RHEUMATOLOGICAL Hx Musculoskeletal Disorders: No Hx Falls: No - GASTROINTESTINAL Hx Gastrointestinal Disorders: No - GENITOURINARY/GYNECOLOGICAL Hx Genitourinary Disorders: No - PSYCHIATRIC Hx Substance Use: No - SURGICAL HISTORY Hx Surgeries: Yes Hx Hysterectomy: Yes Other/Comment: Fibroid removal - ANESTHESIA Hx Anesthesia: Yes Hx Anesthesia Reactions: No Hx Malignant Hyperthermia: No Meds Allergies/Adverse Reactions: Allergies Allergy/AdvReac Type Severity Reaction Status Date / Time No Known Allergies Allergy Verified 06/25/17 19:43 Physical Exam - Constitutional Appears: Non-toxic, No Acute Distress - Head Exam Head Exam: ATRAUMATIC, NORMAL INSPECTION, NORMOCEPHALIC - Eye Exam Eye Exam: Normal appearance - ENT Exam ENT Exam: Mucous Membranes Moist - Neck Exam Neck exam: Positive for: Full Rom. Negative for: Tenderness - Respiratory Exam Respiratory Exam: Clear to Auscultation Bilateral. absent: Accessory Muscle Use , Decreased Breath Sounds, Rales, Rhonchi, Wheezes, Respiratory Distress - Cardiovascular Exam Cardiovascular Exam: REGULAR RHYTHM, RRR. absent: Tachycardia - GI/Abdominal Exam GI & Abdominal Exam: Normal Bowel Sounds, Soft. absent: Distended, Tenderness - Rectal Exam Rectal Exam: Deferred - Extremities Exam Extremities exam: Positive for: normal inspection. Negative for: calf tenderness - Neurological Exam Neurological exam: Alert, Oriented x3 - Skin Skin Exam: Dry, Intact, Normal Color, Warm Results - Vital Signs Recent Vital Signs: Last Vital Signs Temp 98.9 F 12/17/17 11:56 Pulse 109 H 12/17/17 11:56 Resp 19 12/17/17 11:56 BP 144/98 H 12/17/17 11:56 Pulse Ox 98 12/17/17 14:35 - Labs Result Diagrams: 12/17/17 13:05 12/17/17 13:05 Labs: Laboratory Results - last 24 hr 12/17/17 12/17/17 12/17/17 12:54 13:05 13:05 WBC 0.5 L* D RBC 2.97 L Hgb 9.7 L Hct 28.4 L MCV 95.8 D MCH 32.7 H MCHC 34.2 RDW 18.4 H Plt Count 33 L D MPV 8.1 Neut % (Auto) 7.9 L Lymph % (Auto) 88.4 H [place] % (Auto) 3.2 Eos % (Auto) 0.5 Baso % (Auto) 0.0 Neut # (Auto) 0.0 L Lymph # (Auto) 0.4 L [place] # (Auto) 0.0 Eos # (Auto) 0.0 Baso # (Auto) 0.0 PT INR APTT pCO2 pO2 78 H HCO3 ABG pH ABG Total CO2 ABG O2 Saturation ABG O2 Content ABG Base Excess ABG Hemoglobin ABG Carboxyhemoglobin POC ABG HHb (Measured) ABG Methemoglobin ABG O2 Capacity [place] Test VBG pH 7.48 H VBG pCO2 43 VBG HCO3 30.9 VBG Total CO2 33.3 H VBG O2 Sat (Calc) 100.0 H VBG Base Excess 7.7 H VBG Potassium 4.3 A-a O2 Difference Hgb O2 Saturation Sodium 132.0 131 L Chloride 95.0 L 91 L Glucose 563 H* D Lactate 3.7 H FiO2 21.0 Blood Gas Comments Vbg Crit Value Called To Dayanna smith m.d. Crit Value Called By Shima Crit Value Read Back Y Blood Gas Notified Time 1314 Potassium 4.4 Carbon Dioxide 28 Anion Gap 16 BUN 10 Creatinine 0.4 L Est GFR ( Amer) > 60 Est GFR (Non-Af Amer) > 60 Random Glucose 540 H* D Calcium 9.5 Total Bilirubin 0.7 AST 150 H D ALT 229 H D Alkaline Phosphatase 176 H D Total Protein 6.8 Albumin 3.8 Globulin 3.0 Albumin/Globulin Ratio 1.3 Venous Blood Potassium 4.3 Urine Color Urine Clarity Urine pH Ur Specific [place] Urine Protein Urine Glucose (UA) Urine Ketones Urine Blood Urine Nitrate Urine Bilirubin Urine Urobilinogen Ur Leukocyte Esterase Urine RBC (Auto) Urine Microscopic WBC Ur Squamous Epith Cells Urine Bacteria Blood Type Antibody Screen BBK History Checked 12/17/17 12/17/17 12/17/17 13:05 13:09 13:14 WBC RBC Hgb Hct MCV MCH MCHC RDW Plt Count MPV Neut % (Auto) Lymph % (Auto) [place] % (Auto) Eos % (Auto) Baso % (Auto) Neut # (Auto) Lymph # (Auto) [place] # (Auto) Eos # (Auto) Baso # (Auto) PT 10.8 INR 1.0 APTT 23.9 L pCO2 pO2 HCO3 ABG pH ABG Total CO2 ABG O2 Saturation ABG O2 Content ABG Base Excess ABG Hemoglobin ABG Carboxyhemoglobin POC ABG HHb (Measured) ABG Methemoglobin ABG O2 Capacity [place] Test VBG pH VBG pCO2 VBG HCO3 VBG Total CO2 VBG O2 Sat (Calc) VBG Base Excess VBG Potassium A-a O2 Difference Hgb O2 Saturation Sodium Chloride Glucose Lactate FiO2 Blood Gas Comments Crit Value Called To Crit Value Called By Crit Value Read Back Blood Gas Notified Time Potassium Carbon Dioxide Anion Gap BUN Creatinine Est GFR ( Amer) Est GFR (Non-Af Amer) Random Glucose Calcium Total Bilirubin AST ALT Alkaline Phosphatase Total Protein Albumin Globulin Albumin/Globulin Ratio Venous Blood Potassium Urine Color Straw Urine Clarity Clear Urine pH 7.0 Ur Specific [place] 1.026 Urine Protein 30 Urine Glucose (UA) >=500 Urine Ketones Negative Urine Blood Negative Urine Nitrate Negative Urine Bilirubin Negative Urine Urobilinogen 0.2-1.0 Ur Leukocyte Esterase Neg Urine RBC (Auto) 1 Urine Microscopic WBC 13 H Ur Squamous Epith Cells < 1 Urine Bacteria Rare Blood Type B POSITIVE Antibody Screen Negative BBK History Checked Patient has bt 12/17/17 13:21 WBC RBC Hgb Hct MCV MCH MCHC RDW Plt Count MPV Neut % (Auto) Lymph % (Auto) [place] % (Auto) Eos % (Auto) Baso % (Auto) Neut # (Auto) Lymph # (Auto) [place] # (Auto) Eos # (Auto) Baso # (Auto) PT INR APTT pCO2 38 pO2 90 HCO3 32.1 H ABG pH 7.54 H ABG Total CO2 33.7 H ABG O2 Saturation 100.0 H ABG O2 Content 14.0 L ABG Base Excess 9.3 H ABG Hemoglobin 10.5 L ABG Carboxyhemoglobin 2.4 H POC ABG HHb (Measured) 0.0 ABG Methemoglobin 3.4 H ABG O2 Capacity 14.0 L [place] Test Yes VBG pH VBG pCO2 VBG HCO3 VBG Total CO2 VBG O2 Sat (Calc) VBG Base Excess VBG Potassium A-a O2 Difference 12.0 Hgb O2 Saturation 94.1 L Sodium Chloride Glucose Lactate FiO2 21.0 Blood Gas Comments Ra21% Crit Value Called To Peachy cruzrn Crit Value Called By Shima Crit Value Read Back Y Blood Gas Notified Time 1339 Potassium Carbon Dioxide Anion Gap BUN Creatinine Est GFR ( Amer) Est GFR (Non-Af Amer) Random Glucose Calcium Total Bilirubin AST ALT Alkaline Phosphatase Total Protein Albumin Globulin Albumin/Globulin Ratio Venous Blood Potassium Urine Color Urine Clarity Urine pH Ur Specific [place] Urine Protein Urine Glucose (UA) Urine Ketones Urine Blood Urine Nitrate Urine Bilirubin Urine Urobilinogen Ur Leukocyte Esterase Urine RBC (Auto) Urine Microscopic WBC Ur Squamous Epith Cells Urine Bacteria Blood Type Antibody Screen BBK History Checked Assessment & Plan (1) Neutropenia Status: Acute (2) Brain cancer Status: Chronic (3) HTN (hypertension) Status: Chronic (4) DM2 (diabetes mellitus, type 2) Status: Chronic - Assessment and Plan (Free Text) Plan: afebrile, tachycardic, normotensive Hematology/Oncology consult ordered for granix administration WBC 0.5 (5.3 in 06/2017) CBC: 0.5>9.7/28.4<33 CMP: 131/4.4, 91/28, 10/0.4, glucose 540, AST 150, ALT 229, alk phos 176 corrected Na: 138 given regular insulin 8 units in ED given bolus of IVF NS 1L c/w home medication insulin correction scale hypoglycemia protocol neutropenic isolation f/u CBC, CMP, blood culture, urine culture prophylactic measures: SCDs, no anticoagulation due to thrombocytopenia monitor for acute changes admit to Med/Surg
[2017-12-17] MEDS ORDERED: Glucagon Recombinant 1 mg Inj IM PRN (14:54)
[2017-12-17] MEDS ORDERED: Dextrose 50% SYRINGE Inj (50 ml) IV PRN (14:54)
[2017-12-17] MEDS: Sodium Chloride 0.9% 1,000 ML IV SCH (15:07)
[2017-12-17] MEDS: Insulin Lispro (humaLOG) 100 Units/ml Inj SC SCH ×2 (19:10→23:31)
[2017-12-17] MEDS: Tmp-Smz 800 mg-160 mg DS Tab PO SCH (21:37)
[2017-12-18 06:45] LABS: BASO % 0.6 % (0.0-2.0); EOS % 0.4 % (0.0-4.0); HEMOGLOBIN 9.3 g/dL (12.0-16.0); LYMPH # 0.3 K/uL (1.0-4.3); LYMPH % 77.2 % (20.0-40.0); MEAN CELL VOLUME 94.1 fl (81.0-99.0); MEAN CORPUSCULAR HEMOGLOBIN 32.7 pg (27.0-31.0); MEAN CORPUSCULAR HGB CONC 34.8 g/dL (33.0-37.0); MEAN PLATELET VOLUME 7.8 fl (7.2-11.7); MONO % 5.8 % (0.0-10.0); NEUT # 0.1 K/uL (1.8-7.0); NRBC % 9.1 % (0.0-0.0); RBC 2.84 Mil/uL (3.80-5.20); RED CELL DISTRIBUTION WIDTH 18.1 % (11.5-14.5)
[2017-12-18 06:51] LABS: WHITE BLOOD COUNT 0.4 K/uL (4.8-10.8)
[2017-12-18 07:47] LABS: ALB/GLOB RATIO 1.1 (1.0-2.1); ALBUMIN 3.6 g/dL (3.5-5.0); ALT/SGPT 186 U/L (9-52); AST/SGOT 89 U/L (14-36); BLOOD UREA NITROGEN 7 mg/dl (7-17); CALCIUM 8.9 mg/dL (8.4-10.2); GFR AFRICAN-AMERICAN > 60; GFR NON-AFRICAN AMERICAN > 60
[2017-12-18] MEDS: Insulin Lispro (humaLOG) 100 Units/ml Inj SC SCH ×4 (08:27→22:32)
[2017-12-18] MEDS: Tmp-Smz 800 mg-160 mg DS Tab PO SCH ×2 (08:30→21:29)
[2017-12-18] MEDS: Sodium Chloride 0.9% 1,000 ML IV SCH ×3 (08:31→21:00)
--- NOTE | 2017-12-18 10:06 | CP.PCM.CON ---
History of Present Illness - History of Present Illness History of Present Illness: This is a 57 yrs old female who is being treated for metastaric breast and brain he dhe cancer, Her last dose was 1 week ago, and she came to the ER with fever,chills and her CBC showed wbc count of 0.5. She did not have burning in the urine, cough or shortness of breath.. She was admitted for prophylactic antibiotics and Granix Past Patient History - Past Medical History & Family History Past Medical History?: Yes - Past Social History Smoking Status: Never Smoked - CARDIAC Hx Cardiac Disorders: Yes Hx Hypertension: Yes - PULMONARY Hx Respiratory Disorders: No - NEUROLOGICAL Hx Neurological Disorder: No Other/Comment: Brain CA - HEENT Hx HEENT Problems: No - RENAL Hx Chronic Kidney Disease: No - ENDOCRINE/METABOLIC Hx Endocrine Disorders: Yes Hx Diabetes Mellitus Type 2: Yes - HEMATOLOGICAL/ONCOLOGICAL Hx Blood Disorders: Yes Hx Anemia: Yes Hx Cancer: Yes (brain mets to spine) Hx Chemotherapy: Yes Hx Gum Bleeding: Yes Hx Human Immunodeficiency Virus (HIV): No - INTEGUMENTARY Hx Dermatological Problems: No - MUSCULOSKELETAL/RHEUMATOLOGICAL Hx Musculoskeletal Disorders: No Hx Falls: Yes - GASTROINTESTINAL Hx Gastrointestinal Disorders: No - GENITOURINARY/GYNECOLOGICAL Hx Genitourinary Disorders: No - PSYCHIATRIC Hx Substance Use: No - SURGICAL HISTORY Hx Surgeries: Yes Hx Cholecystectomy: Yes Hx Hysterectomy: Yes Other/Comment: Fibroid removal - ANESTHESIA Hx Anesthesia: Yes Hx Anesthesia Reactions: No Hx Malignant Hyperthermia: No Has any member of the family had a problem w/ anesthesia?: No Meds Allergies/Adverse Reactions: Allergies Allergy/AdvReac Type Severity Reaction Status Date / Time No Known Allergies Allergy Verified 06/25/17 19:43 - Medications Medications: Current Medications Amlodipine Besylate (Norvasc) 10 mg PO QPM [facility] Last Admin: 12/17/17 17:17 Dose: 10 mg Aspirin (Ecotrin) 81 mg PO DAILY [facility] Last Admin: 12/18/17 08:30 Dose: 81 mg Atorvastatin Calcium (Lipitor) 20 mg PO HS [facility] Last Admin: 12/17/17 21:36 Dose: 20 mg Dexamethasone (Decadron) 2 mg PO BID [facility] Last Admin: 12/18/17 08:29 Dose: 2 mg Dextrose (Dextrose 50% Inj) 0 ml IV STAT PRN; Protocol PRN Reason: Hypoglycemia Protocol Dextrose (Glutose 15) 0 gm PO ONCE PRN; Protocol PRN Reason: Hypoglycemia Protocol Famotidine (Pepcid) 20 mg PO Q12 [facility] Last Admin: 12/18/17 08:29 Dose: 20 mg Glucagon (Glucagen Diagnostic Kit) 0 mg IM STAT PRN; Protocol PRN Reason: Hypoglycemia Protocol Sodium Chloride (Sodium Chloride 0.9%) 1,000 mls @ 100 mls/hr IV .Q10H [facility] Last Admin: 12/18/17 08:31 Dose: 100 mls/hr Insulin Human Lispro (Humalog) 0 units SC ACHS SHANICE PRN Reason: Protocol Last Admin: 12/18/17 08:27 Dose: 3 units Levetiracetam (Keppra) 500 mg PO Q12 [facility] Last Admin: 12/18/17 08:29 Dose: 500 mg Losartan Potassium (Cozaar) 25 mg PO DAILY [facility] Last Admin: 12/18/17 08:30 Dose: 25 mg Metformin HCl (Glucophage) 1,000 mg PO BID [facility] Last Admin: 12/18/17 08:29 Dose: 1,000 mg Sitagliptin Phosphate (Januvia) 50 mg PO DAILY [facility] Last Admin: 12/18/17 08:30 Dose: 50 mg Trimethoprim/Sulfamethoxazole (Bactrim Ds Tab) 1 tab PO Q12 [facility] PRN Reason: Protocol Last Admin: 12/18/17 08:30 Dose: 1 tab Physical Exam - Additional Findings Additional findings: Physical Exam; Alert, well oriented in no acute distress neck; supple, no adenopathy chest; Clear, no rales or rhonchi Heart; RSR, no murmur Abd; soft, no mass, no h/s megaly Pt has a flat affect. Results - Vital Signs Recent Vital Signs: Last Vital Signs Temp 99.0 F 12/18/17 08:30 Pulse 98 H 12/18/17 08:30 Resp 20 12/18/17 08:30 BP 160/96 H 12/18/17 08:30 Pulse Ox 96 12/18/17 08:30 - Labs Result Diagrams: 12/18/17 05:30 12/18/17 05:30 Labs: Laboratory Results - last 24 hr 12/17/17 12/17/17 12/17/17 12:54 13:05 13:05 WBC 0.5 L* D RBC 2.97 L Hgb 9.7 L Hct 28.4 L MCV 95.8 D MCH 32.7 H MCHC 34.2 RDW 18.4 H Plt Count 33 L D MPV 8.1 Neut % (Auto) 7.9 L Lymph % (Auto) 88.4 H [place] % (Auto) 3.2 Eos % (Auto) 0.5 Baso % (Auto) 0.0 Neut # (Auto) 0.0 L Lymph # (Auto) 0.4 L [place] # (Auto) 0.0 Eos # (Auto) 0.0 Baso # (Auto) 0.0 Total Counted Cancelled Neutrophils % (Manual) Cancelled Band Neutrophils % Cancelled Lymphocytes % (Manual) Cancelled Reactive Lymphs % Cancelled Monocytes % (Manual) Cancelled Eosinophils % (Manual) Cancelled Basophils % (Manual) Cancelled Metamyelocytes % Cancelled Myelocytes % Cancelled Promyelocytes % Cancelled Blast Cells % Cancelled Plasma Cell % (Manual) Cancelled Nucleated RBC % Cancelled Hypersegmented Polys Cancelled Smudge Cells Cancelled Toxic Granulation Cancelled Dohle Bodies Cancelled Aaliyah Rods Cancelled Platelet Estimate Cancelled Plt Clumps, EDTA Cancelled Large Platelets Cancelled Giant Platelets Cancelled RBC Morphology Cancelled Polychromasia Cancelled Hypochromasia (manual) Cancelled Poikilocytosis (manual Cancelled Basophilic Stippling Cancelled Anisocytosis (manual) Cancelled Microcytosis (manual) Cancelled Macrocytosis (manual) Cancelled Spherocytes Cancelled Sickle Cells Cancelled Target Cells Cancelled Tear Drop Cells Cancelled Ovalocytes Cancelled Stomatocytes Cancelled Helmet Cells Cancelled [place] Bodies Cancelled Charlie Cells Cancelled Acanthocytes (Spur) Cancelled Rouleaux Cancelled Schistocytes Cancelled PT INR APTT pCO2 pO2 78 H HCO3 ABG pH ABG Total CO2 ABG O2 Saturation ABG O2 Content ABG Base Excess ABG Hemoglobin ABG Carboxyhemoglobin POC ABG HHb (Measured) ABG Methemoglobin ABG O2 Capacity [place] Test VBG pH 7.48 H VBG pCO2 43 VBG HCO3 30.9 VBG Total CO2 33.3 H VBG O2 Sat (Calc) 100.0 H VBG Base Excess 7.7 H VBG Potassium 4.3 A-a O2 Difference Hgb O2 Saturation Sodium 132.0 131 L Chloride 95.0 L 91 L Glucose 563 H* D Lactate 3.7 H FiO2 21.0 Blood Gas Comments Vbg Crit Value Called To Dayanna smith m.d. Crit Value Called By Shima Crit Value Read Back Y Blood Gas Notified Time 1314 Potassium 4.4 Carbon Dioxide 28 Anion Gap 16 BUN 10 Creatinine 0.4 L Est GFR ( Amer) > 60 Est GFR (Non-Af Amer) > 60 POC Glucose (mg/dL) Random Glucose 540 H* D Calcium 9.5 Total Bilirubin 0.7 AST 150 H D ALT 229 H D Alkaline Phosphatase 176 H D Total Protein 6.8 Albumin 3.8 Globulin 3.0 Albumin/Globulin Ratio 1.3 Venous Blood Potassium 4.3 Urine Color Urine Clarity Urine pH Ur Specific Martin Urine Protein Urine Glucose (UA) Urine Ketones Urine Blood Urine Nitrate Urine Bilirubin Urine Urobilinogen Ur Leukocyte Esterase Urine RBC (Auto) Urine Microscopic WBC Ur Squamous Epith Cells Urine Bacteria Blood Type Antibody Screen BBK History Checked 12/17/17 12/17/17 12/17/17 13:05 13:09 13:14 WBC RBC Hgb Hct MCV MCH MCHC RDW Plt Count MPV Neut % (Auto) Lymph % (Auto) [place] % (Auto) Eos % (Auto) Baso % (Auto) Neut # (Auto) Lymph # (Auto) [place] # (Auto) Eos # (Auto) Baso # (Auto) Total Counted Neutrophils % (Manual) Band Neutrophils % Lymphocytes % (Manual) Reactive Lymphs % Monocytes % (Manual) Eosinophils % (Manual) Basophils % (Manual) Metamyelocytes % Myelocytes % Promyelocytes % Blast Cells % Plasma Cell % (Manual) Nucleated RBC % Hypersegmented Polys Smudge Cells Toxic Granulation Dohle Bodies Aaliyah Rods Platelet Estimate Plt Clumps, EDTA Large Platelets Giant Platelets RBC Morphology Polychromasia Hypochromasia (manual) Poikilocytosis (manual Basophilic Stippling Anisocytosis (manual) Microcytosis (manual) Macrocytosis (manual) Spherocytes Sickle Cells Target Cells Tear Drop Cells Ovalocytes Stomatocytes Helmet Cells [place] Bodies [place] Cells Acanthocytes (Spur) Rouleaux Schistocytes PT 10.8 INR 1.0 APTT 23.9 L pCO2 pO2 HCO3 ABG pH ABG Total CO2 ABG O2 Saturation ABG O2 Content ABG Base Excess ABG Hemoglobin ABG Carboxyhemoglobin POC ABG HHb (Measured) ABG Methemoglobin ABG O2 Capacity [place] Test VBG pH VBG pCO2 VBG HCO3 VBG Total CO2 VBG O2 Sat (Calc) VBG Base Excess VBG Potassium A-a O2 Difference Hgb O2 Saturation Sodium Chloride Glucose Lactate FiO2 Blood Gas Comments Crit Value Called To Crit Value Called By Crit Value Read Back Blood Gas Notified Time Potassium Carbon Dioxide Anion Gap BUN Creatinine Est GFR ( Amer) Est GFR (Non-Af Amer) POC Glucose (mg/dL) Random Glucose Calcium Total Bilirubin AST ALT Alkaline Phosphatase Total Protein Albumin Globulin Albumin/Globulin Ratio Venous Blood Potassium Urine Color Straw Urine Clarity Clear Urine pH 7.0 Ur Specific Martin 1.026 Urine Protein 30 Urine Glucose (UA) >=500 Urine Ketones Negative Urine Blood Negative Urine Nitrate Negative Urine Bilirubin Negative Urine Urobilinogen 0.2-1.0 Ur Leukocyte Esterase Neg Urine RBC (Auto) 1 Urine Microscopic WBC 13 H Ur Squamous Epith Cells < 1 Urine Bacteria Rare Blood Type B POSITIVE Antibody Screen Negative BBK History Checked Patient has bt 12/17/17 12/17/17 12/17/17 13:21 15:10 15:21 WBC RBC Hgb Hct MCV MCH MCHC RDW Plt Count MPV Neut % (Auto) Lymph % (Auto) [place] % (Auto) Eos % (Auto) Baso % (Auto) Neut # (Auto) Lymph # (Auto) [place] # (Auto) Eos # (Auto) Baso # (Auto) Total Counted Neutrophils % (Manual) Band Neutrophils % Lymphocytes % (Manual) Reactive Lymphs % Monocytes % (Manual) Eosinophils % (Manual) Basophils % (Manual) Metamyelocytes % Myelocytes % Promyelocytes % Blast Cells % Plasma Cell % (Manual) Nucleated RBC % Hypersegmented Polys Smudge Cells Toxic Granulation Dohle Bodies Aaliyah Rods Platelet Estimate Plt Clumps, EDTA Large Platelets Giant Platelets RBC Morphology Polychromasia Hypochromasia (manual) Poikilocytosis (manual Basophilic Stippling Anisocytosis (manual) Microcytosis (manual) Macrocytosis (manual) Spherocytes Sickle Cells Target Cells Tear Drop Cells Ovalocytes Stomatocytes Helmet Cells [place] Bodies [place] Cells Acanthocytes (Spur) Rouleaux Schistocytes PT INR APTT pCO2 38 pO2 90 HCO3 32.1 H ABG pH 7.54 H ABG Total CO2 33.7 H ABG O2 Saturation 100.0 H ABG O2 Content 14.0 L ABG Base Excess 9.3 H ABG Hemoglobin 10.5 L ABG Carboxyhemoglobin 2.4 H POC ABG HHb (Measured) 0.0 ABG Methemoglobin 3.4 H ABG O2 Capacity 14.0 L [place] Test Yes VBG pH VBG pCO2 VBG HCO3 VBG Total CO2 VBG O2 Sat (Calc) VBG Base Excess VBG Potassium A-a O2 Difference 12.0 Hgb O2 Saturation 94.1 L Sodium Chloride Glucose Lactate FiO2 21.0 Blood Gas Comments Ra21% Crit Value Called To Dayanna vickers Crit Value Called By Shima Crit Value Read Back Y Blood Gas Notified Time 1339 Potassium Carbon Dioxide Anion Gap BUN Creatinine Est GFR ( Amer) Est GFR (Non-Af Amer) POC Glucose (mg/dL) 266 H 265 H Random Glucose Calcium Total Bilirubin AST ALT Alkaline Phosphatase Total Protein Albumin Globulin Albumin/Globulin Ratio Venous Blood Potassium Urine Color Urine Clarity Urine pH Ur Specific Martin Urine Protein Urine Glucose (UA) Urine Ketones Urine Blood Urine Nitrate Urine Bilirubin Urine Urobilinogen Ur Leukocyte Esterase Urine RBC (Auto) Urine Microscopic WBC Ur Squamous Epith Cells Urine Bacteria Blood Type Antibody Screen BBK History Checked 12/17/17 12/17/17 12/18/17 17:24 22:05 05:30 WBC 0.4 L* RBC 2.84 L Hgb 9.3 L Hct 26.7 L MCV 94.1 MCH 32.7 H MCHC 34.8 RDW 18.1 H Plt Count 38 L MPV 7.8 Neut % (Auto) 16.0 L Lymph % (Auto) 77.2 H [place] % (Auto) 5.8 Eos % (Auto) 0.4 Baso % (Auto) 0.6 Neut # (Auto) 0.1 L Lymph # (Auto) 0.3 L [place] # (Auto) 0.0 Eos # (Auto) 0.0 Baso # (Auto) 0.0 Total Counted Cancelled Neutrophils % (Manual) Cancelled Band Neutrophils % Cancelled Lymphocytes % (Manual) Cancelled Reactive Lymphs % Cancelled Monocytes % (Manual) Cancelled Eosinophils % (Manual) Cancelled Basophils % (Manual) Cancelled Metamyelocytes % Cancelled Myelocytes % Cancelled Promyelocytes % Cancelled Blast Cells % Cancelled Plasma Cell % (Manual) Cancelled Nucleated RBC % Cancelled Hypersegmented Polys Cancelled Smudge Cells Cancelled Toxic Granulation Cancelled Dohle Bodies Cancelled Aaliyah Rods Cancelled Platelet Estimate Cancelled Plt Clumps, EDTA Cancelled Large Platelets Cancelled Giant Platelets Cancelled RBC Morphology Cancelled Polychromasia Cancelled Hypochromasia (manual) Cancelled Poikilocytosis (manual Cancelled Basophilic Stippling Cancelled Anisocytosis (manual) Cancelled Microcytosis (manual) Cancelled Macrocytosis (manual) Cancelled Spherocytes Cancelled Sickle Cells Cancelled Target Cells Cancelled Tear Drop Cells Cancelled Ovalocytes Cancelled Stomatocytes Cancelled Helmet Cells Cancelled [place] Bodies Cancelled Charlie Cells Cancelled Acanthocytes (Spur) Cancelled Rouleaux Cancelled Schistocytes Cancelled PT INR APTT pCO2 pO2 HCO3 ABG pH ABG Total CO2 ABG O2 Saturation ABG O2 Content ABG Base Excess ABG Hemoglobin ABG Carboxyhemoglobin POC ABG HHb (Measured) ABG Methemoglobin ABG O2 Capacity [place] Test VBG pH VBG pCO2 VBG HCO3 VBG Total CO2 VBG O2 Sat (Calc) VBG Base Excess VBG Potassium A-a O2 Difference Hgb O2 Saturation Sodium Chloride Glucose Lactate FiO2 Blood Gas Comments Crit Value Called To Crit Value Called By Crit Value Read Back Blood Gas Notified Time Potassium Carbon Dioxide Anion Gap BUN Creatinine Est GFR ( Amer) Est GFR (Non-Af Amer) POC Glucose (mg/dL) 285 H 350 H Random Glucose Calcium Total Bilirubin AST ALT Alkaline Phosphatase Total Protein Albumin Globulin Albumin/Globulin Ratio Venous Blood Potassium Urine Color Urine Clarity Urine pH Ur Specific Martin Urine Protein Urine Glucose (UA) Urine Ketones Urine Blood Urine Nitrate Urine Bilirubin Urine Urobilinogen Ur Leukocyte Esterase Urine RBC (Auto) Urine Microscopic WBC Ur Squamous Epith Cells Urine Bacteria Blood Type Antibody Screen BBK History Checked 12/18/17 05:30 WBC RBC Hgb Hct MCV MCH MCHC RDW Plt Count MPV Neut % (Auto) Lymph % (Auto) [place] % (Auto) Eos % (Auto) Baso % (Auto) Neut # (Auto) Lymph # (Auto) [place] # (Auto) Eos # (Auto) Baso # (Auto) Total Counted Neutrophils % (Manual) Band Neutrophils % Lymphocytes % (Manual) Reactive Lymphs % Monocytes % (Manual) Eosinophils % (Manual) Basophils % (Manual) Metamyelocytes % Myelocytes % Promyelocytes % Blast Cells % Plasma Cell % (Manual) Nucleated RBC % Hypersegmented Polys Smudge Cells Toxic Granulation Dohle Bodies Aaliyah Rods Platelet Estimate Plt Clumps, EDTA Large Platelets Giant Platelets RBC Morphology Polychromasia Hypochromasia (manual) Poikilocytosis (manual Basophilic Stippling Anisocytosis (manual) Microcytosis (manual) Macrocytosis (manual) Spherocytes Sickle Cells Target Cells Tear Drop Cells Ovalocytes Stomatocytes Helmet Cells [place] Bodies [place] Cells Acanthocytes (Spur) Rouleaux Schistocytes PT INR APTT pCO2 pO2 HCO3 ABG pH ABG Total CO2 ABG O2 Saturation ABG O2 Content ABG Base Excess ABG Hemoglobin ABG Carboxyhemoglobin POC ABG HHb (Measured) ABG Methemoglobin ABG O2 Capacity [place] Test VBG pH VBG pCO2 VBG HCO3 VBG Total CO2 VBG O2 Sat (Calc) VBG Base Excess VBG Potassium A-a O2 Difference Hgb O2 Saturation Sodium 139 Chloride 100 Glucose Lactate FiO2 Blood Gas Comments Crit Value Called To Crit Value Called By Crit Value Read Back Blood Gas Notified Time Potassium 3.5 L Carbon Dioxide 29 Anion Gap 14 BUN 7 Creatinine 0.4 L Est GFR ( Amer) > 60 Est GFR (Non-Af Amer) > 60 POC Glucose (mg/dL) Random Glucose 261 H Calcium 8.9 Total Bilirubin 0.7 AST 89 H D ALT 186 H Alkaline Phosphatase 171 H Total Protein 6.7 Albumin 3.6 Globulin 3.1 Albumin/Globulin Ratio 1.1 Venous Blood Potassium Urine Color Urine Clarity Urine pH Ur Specific Martin Urine Protein Urine Glucose (UA) Urine Ketones Urine Blood Urine Nitrate Urine Bilirubin Urine Urobilinogen Ur Leukocyte Esterase Urine RBC (Auto) Urine Microscopic WBC Ur Squamous Epith Cells Urine Bacteria Blood Type Antibody Screen BBK History Checked Assessment & Plan - Assessment and Plan (Free Text) Assessment: impresson. breast ancer with brain metastasis. Severe neutropenia secondary to chemo, - Date & Time Date: 12/18/17 Time: 10:20
--- NOTE | 2017-12-18 11:39 | CARD ---
APPROVED REPORT EKG Measurement Heart [id number] <Conclusion> Sinus tachycardia Possible Left atrial enlargement Left ventricular hypertrophy Abnormal ECG
--- NOTE | 2017-12-18 15:12 | CP.PCM.PN ---
Subjective - Date & Time of Evaluation Date of Evaluation: 12/18/17 Time of Evaluation: 09:50 - Subjective Subjective: Patient seen and examined this morning at bedside w/ Dr. Lau. There are no acute events overnight, NAD. Patient is feeling better and eating breakfast. Patient remains on reverse isolation due to severe neutropenia. Patient denies headaches, chest pain, SOB, abdominal pain, nausea, vomiting, diarrhea, dysuria , or fever. Objective - Vital Signs/Intake and Output Vital Signs (last 24 hours): Temp Pulse Resp BP Pulse Ox 99.0 F 98 H 20 160/96 H 96 12/18/17 08:30 12/18/17 08:30 12/18/17 08:30 12/18/17 08:30 12/18/17 08:30 - Medications Medications: Current Medications Amlodipine Besylate (Norvasc) 10 mg PO QPM [facility] Last Admin: 12/17/17 17:17 Dose: 10 mg Atorvastatin Calcium (Lipitor) 20 mg PO HS [facility] Last Admin: 12/17/17 21:36 Dose: 20 mg Dexamethasone (Decadron) 2 mg PO BID [facility] Last Admin: 12/18/17 08:29 Dose: 2 mg Dextrose (Dextrose 50% Inj) 0 ml IV STAT PRN; Protocol PRN Reason: Hypoglycemia Protocol Dextrose (Glutose 15) 0 gm PO ONCE PRN; Protocol PRN Reason: Hypoglycemia Protocol Famotidine (Pepcid) 20 mg PO Q12 [facility] Last Admin: 12/18/17 08:29 Dose: 20 mg Glucagon (Glucagen Diagnostic Kit) 0 mg IM STAT PRN; Protocol PRN Reason: Hypoglycemia Protocol Sodium Chloride (Sodium Chloride 0.9%) 1,000 mls @ 100 mls/hr IV .Q10H [facility] Last Admin: 12/18/17 12:19 Dose: Not Given Insulin Human Lispro (Humalog) 0 units SC ACHS SHANICE PRN Reason: Protocol Last Admin: 12/18/17 12:39 Dose: 4 units Levetiracetam (Keppra) 500 mg PO Q12 [facility] Last Admin: 12/18/17 08:29 Dose: 500 mg Losartan Potassium (Cozaar) 25 mg PO DAILY [facility] Last Admin: 12/18/17 08:30 Dose: 25 mg Metformin HCl (Glucophage) 1,000 mg PO BID [facility] Last Admin: 12/18/17 08:29 Dose: 1,000 mg Oxymetazoline HCl (Nasal Decongestant 15 Ml) 2 spr NS Q12 PRN PRN Reason: Nasal congestion Sitagliptin Phosphate (Januvia) 50 mg PO DAILY [facility] Last Admin: 12/18/17 08:30 Dose: 50 mg Trimethoprim/Sulfamethoxazole (Bactrim Ds Tab) 1 tab PO Q12 [facility] PRN Reason: Protocol Last Admin: 12/18/17 08:30 Dose: 1 tab - Labs Labs: 12/18/17 05:30 12/18/17 05:30 PT 10.8 Seconds (9.8-13.1) 12/17/17 13:14 INR 1.0 (0.9-1.2) 12/17/17 13:14 APTT 23.9 Seconds (25.6-37.1) L 12/17/17 13:14 - Constitutional Appears: Non-toxic, No Acute Distress - Head Exam Head Exam: ATRAUMATIC, NORMAL INSPECTION, NORMOCEPHALIC - Eye Exam Eye Exam: Normal appearance - ENT Exam ENT Exam: Mucous Membranes Moist - Neck Exam Neck Exam: absent: Full ROM - Respiratory Exam Respiratory Exam: Decreased Breath Sounds. absent: Accessory Muscle Use, Rales , Rhonchi, Wheezes, Respiratory Distress - Cardiovascular Exam Cardiovascular Exam: REGULAR RHYTHM. absent: Tachycardia - GI/Abdominal Exam GI & Abdominal Exam: Soft, Normal Bowel Sounds. absent: Distended, Tenderness - Extremities Exam Extremities Exam: absent: Calf Tenderness - Neurological Exam Neurological Exam: Alert, Awake, Oriented x3 - Skin Skin Exam: Dry, Intact, Normal Color, Warm Assessment and Plan (1) Neutropenia Status: Acute (2) Brain cancer Status: Chronic (3) HTN (hypertension) Status: Chronic (4) DM2 (diabetes mellitus, type 2) Status: Chronic - Assessment and Plan (Free Text) Plan: afebrile, tachycardic, BP elevated Hematology/Oncology recommendations appreciated WBC 0.4 CBC: 0.5>9.3/26.7<38 c/w home medication insulin levemir 10 units SC HS insulin correction scale hypoglycemia protocol neutropenic isolation prophylactic measures: SCDs, no anticoagulation due to thrombocytopenia monitor for acute changes
[2017-12-18 15:59] LABS: HEMOGLOBIN 9.3 g/dL (12.0-16.0); MEAN CELL VOLUME 94.1 fl (81.0-99.0); MEAN CORPUSCULAR HEMOGLOBIN 32.7 pg (27.0-31.0); MEAN CORPUSCULAR HGB CONC 34.7 g/dL (33.0-37.0); RBC 2.86 Mil/uL (3.80-5.20); RED CELL DISTRIBUTION WIDTH 18.3 % (11.5-14.5)
[2017-12-18] MEDS ORDERED: Chlorhexidine Gluconate 1 APPL/PKT TP ONE (17:12)
[2017-12-18 17:17] LABS: WHITE BLOOD COUNT 0.5 K/uL (4.8-10.8)
--- NOTE | 2017-12-18 18:49 | CP.PCM.PN ---
Subjective - Date & Time of Evaluation Date of Evaluation: 12/18/17 Time of Evaluation: 18:40 Objective - Vital Signs/Intake and Output Vital Signs (last 24 hours): Temp Pulse Resp BP Pulse Ox 98 F 113 H 20 130/90 95 12/18/17 17:10 12/18/17 17:10 12/18/17 17:10 12/18/17 17:10 12/18/17 17:10 - Medications Medications: Current Medications Amlodipine Besylate (Norvasc) 10 mg PO QPM [facility] Last Admin: 12/17/17 17:17 Dose: 10 mg Atorvastatin Calcium (Lipitor) 20 mg PO HS [facility] Last Admin: 12/17/17 21:36 Dose: 20 mg Dexamethasone (Decadron) 2 mg PO BID [facility] Last Admin: 12/18/17 08:29 Dose: 2 mg Dextrose (Dextrose 50% Inj) 0 ml IV STAT PRN; Protocol PRN Reason: Hypoglycemia Protocol Dextrose (Glutose 15) 0 gm PO ONCE PRN; Protocol PRN Reason: Hypoglycemia Protocol Famotidine (Pepcid) 20 mg PO Q12 [facility] Last Admin: 12/18/17 08:29 Dose: 20 mg Glucagon (Glucagen Diagnostic Kit) 0 mg IM STAT PRN; Protocol PRN Reason: Hypoglycemia Protocol Sodium Chloride (Sodium Chloride 0.9%) 1,000 mls @ 100 mls/hr IV .Q10H [facility] Last Admin: 12/18/17 12:19 Dose: Not Given Insulin Detemir (Levemir) 10 units SC HS [facility] Insulin Human Lispro (Humalog) 0 units SC ACHS [facility] PRN Reason: Protocol Last Admin: 12/18/17 12:39 Dose: 4 units Levetiracetam (Keppra) 500 mg PO Q12 [facility] Last Admin: 12/18/17 08:29 Dose: 500 mg Losartan Potassium (Cozaar) 25 mg PO DAILY [facility] Last Admin: 12/18/17 08:30 Dose: 25 mg Metformin HCl (Glucophage) 1,000 mg PO BID [facility] Last Admin: 12/18/17 08:29 Dose: 1,000 mg Oxymetazoline HCl (Nasal Decongestant 15 Ml) 2 spr NS Q12 PRN PRN Reason: Nasal congestion Phenylephrine HCl (Osman-Synephrine 1% Nasal [place]) 1 spry [facility]ANICE Q12 PRN PRN Reason: Nasal congestion Sitagliptin Phosphate (Januvia) 50 mg PO DAILY [facility] Last Admin: 12/18/17 08:30 Dose: 50 mg Trimethoprim/Sulfamethoxazole (Bactrim Ds Tab) 1 tab PO Q12 [facility] PRN Reason: Protocol Last Admin: 12/18/17 08:30 Dose: 1 tab - Labs Labs: 12/18/17 15:55 12/18/17 05:30 PT 10.8 Seconds (9.8-13.1) 12/17/17 13:14 INR 1.0 (0.9-1.2) 12/17/17 13:14 APTT 23.9 Seconds (25.6-37.1) L 12/17/17 13:14 Assessment and Plan - Assessment and Plan (Free Text) Assessment: see below Plan: CC nose bleed HPI 57 y/o female with metastatic brain CA treatyed at [place] s/p chemo one week ago now admitted with pancytopenia. no h/o nose bleeds. today she developed spontaneous nose bleed that did not stop with manual pressure. i was called at 4pm and came in immediately, arriving at the bedside at 425. Past Medical History DM HTN see HPI Exam awake, alert, comfortable upon my arrival, there is fresh blood mixed with clots in both nares. there is also fresh blood in the mouth. i was able to clear the right nasal cavity of the clots, and it remained dry. there were more clots on the left side. i removed some of the clots on the left side, and a small area of oozing was identified on the left anterior septum. i cauterized this with silver nitrate (small application), and this oozing stopped, but she continued to bleed from elsewhere. i tried to visualize the area of bleeding using rigid endocsopy and suction, but was unable to due to the presence of clots and active bleeding. i therefore packed the nose with a 6cm Merocel sponge and taped the strings to the nose. the bleeding stopped after several minutes. oc/op clear Impression epistaxis secondary to thrombocytopenia Recommend platelet txf HOB elevation BP control abx while pack in place patient's family wished to txfer her to [place] for further care. i spoke with Dr. Lau, who has no objection. I also spoke with [employer] in [facility] and helped to facilitate the transfer with the transfer center. I also spoke with patient's daughter, Jessi, on the phone and explained what i did (nasal packing). the pack should be removed in 48-72 hours.
[2017-12-18] MEDS ORDERED: Insulin Detemir 100 Units/ml Inj SC SCH (22:00)
[2017-12-18 22:57] LABS: BASO % 0.3 % (0.0-2.0); EOS % 0.2 % (0.0-4.0); LYMPH # 0.2 K/uL (1.0-4.3); LYMPH % 65.4 % (20.0-40.0); MEAN CELL VOLUME 94.9 fl (81.0-99.0); MEAN CORPUSCULAR HEMOGLOBIN 32.3 pg (27.0-31.0); MEAN CORPUSCULAR HGB CONC 34.1 g/dL (33.0-37.0); MEAN PLATELET VOLUME 7.8 fl (7.2-11.7); MONO % 8.1 % (0.0-10.0); NEUT # 0.1 K/uL (1.8-7.0); NRBC % 20.3 % (0.0-0.0); RBC 2.3 Mil/uL (3.80-5.20)
[2017-12-19 00:32] LABS: WHITE BLOOD COUNT 0.3 K/uL (4.8-10.8)
[2017-12-19 00:33] LABS: HEMOGLOBIN 7.4 g/dL (12.0-16.0)
[2017-12-19 05:33] LABS: HEMOGLOBIN 6.8 g/dL (12.0-16.0); MEAN CELL VOLUME 94.2 fl (81.0-99.0); MEAN CORPUSCULAR HEMOGLOBIN 32.7 pg (27.0-31.0); MEAN CORPUSCULAR HGB CONC 34.7 g/dL (33.0-37.0); RBC 2.07 Mil/uL (3.80-5.20); RED CELL DISTRIBUTION WIDTH 18.3 % (11.5-14.5)
[2017-12-19 05:42] LABS: WHITE BLOOD COUNT 0.4 K/uL (4.8-10.8)
[2017-12-19 05:58] LABS: BLOOD UREA NITROGEN 17 mg/dl (7-17); CALCIUM 8.3 mg/dL (8.4-10.2); GFR AFRICAN-AMERICAN > 60; GFR NON-AFRICAN AMERICAN > 60
[2017-12-19] MEDS: Insulin Lispro (humaLOG) 100 Units/ml Inj SC SCH ×3 (06:32→16:21)
[2017-12-19] MEDS: Sodium Chloride 0.9% 1,000 ML IV SCH (09:05)
[2017-12-19 12:00] VITALS: O2SAT 98
[2017-12-19 12:25] LABS: MEAN CELL VOLUME 92.2 fl (81.0-99.0); MEAN CORPUSCULAR HEMOGLOBIN 32.1 pg (27.0-31.0); MEAN CORPUSCULAR HGB CONC 34.8 g/dL (33.0-37.0); RBC 2.5 Mil/uL (3.80-5.20); RED CELL DISTRIBUTION WIDTH 17.2 % (11.5-14.5)
[2017-12-19 12:40] LABS: WHITE BLOOD COUNT 0.4 K/uL (4.8-10.8)
[2017-12-19] MEDS ORDERED: Cefepime 1 GM in Sodium Chloride 0.9% 100 ML IVPB SCH (13:30)
--- NOTE | 2017-12-19 13:50 | CP.PCM.PCO ---
Assessment & Plan - Assessment and Plan (Free Text) Assessment: Patient was seen and examined this morning, sp blood transfusion, no more nose bleeds, no gi bleeding reported Denies chest pain shortness of breath, nausea or vomiting. Patient afebrile, normotensive report given to Dr Fraire [facility] for transfer when arrangements made patient and daughter saúl made aware.
--- NOTE | 2017-12-19 14:21 | CP.PCM.DIS ---
Provider - Provider Date of Admission: 12/17/17 13:43 Attending physician: Sheldon Lau MD Time Spent in preparation of Discharge (in minutes): 15 Diagnosis - Discharge Diagnosis (1) Neutropenia Status: Acute (2) Brain cancer Status: Chronic (3) HTN (hypertension) Status: Chronic (4) DM2 (diabetes mellitus, type 2) Status: Chronic Hospital Course - Lab Results Lab Results: Micro Results 12/17/17 13:05 Blood Blood Culture - Preliminary NO GROWTH AFTER 48 HOURS 12/17/17 13:05 Urine,Clean Catch Urine Culture - Final Escherichia Coli Most Recent Lab Values WBC 0.4 K/uL (4.8-10.8) L* 12/19/17 12:10 RBC 2.50 Mil/uL (3.80-5.20) L 12/19/17 12:10 Hgb 8.0 g/dL (12.0-16.0) L 12/19/17 12:10 Hct 23.0 % (34.0-47.0) L 12/19/17 12:10 MCV 92.2 fl (81.0-99.0) D 12/19/17 12:10 MCH 32.1 pg (27.0-31.0) H 12/19/17 12:10 MCHC 34.8 g/dL (33.0-37.0) 12/19/17 12:10 RDW 17.2 % (11.5-14.5) H 12/19/17 12:10 Plt Count 84 K/uL (130-400) L 12/19/17 12:10 MPV 7.8 fl (7.2-11.7) 12/18/17 22:49 Neut % (Auto) 26.0 % (50.0-75.0) L 12/18/17 22:49 Lymph % (Auto) 65.4 % (20.0-40.0) H 12/18/17 22:49 [place] % (Auto) 8.1 % (0.0-10.0) 12/18/17 22:49 Eos % (Auto) 0.2 % (0.0-4.0) 12/18/17 22:49 Baso % (Auto) 0.3 % (0.0-2.0) 12/18/17 22:49 Neut # (Auto) 0.1 K/uL (1.8-7.0) L 12/18/17 22:49 Lymph # (Auto) 0.2 K/uL (1.0-4.3) L 12/18/17 22:49 [place] # (Auto) 0.0 K/uL (0.0-0.8) 12/18/17 22:49 Eos # (Auto) 0.0 K/uL (0.0-0.7) 12/18/17 22:49 Baso # (Auto) 0.0 K/uL (0.0-0.2) 12/18/17 22:49 Total Counted Cancelled 12/17/17 13:05 Neutrophils % (Manual) Cancelled 12/17/17 13:05 Band Neutrophils % Cancelled 12/17/17 13:05 Lymphocytes % (Manual) Cancelled 12/17/17 13:05 Reactive Lymphs % Cancelled 12/17/17 13:05 Monocytes % (Manual) Cancelled 12/17/17 13:05 Eosinophils % (Manual) Cancelled 12/17/17 13:05 Basophils % (Manual) Cancelled 12/17/17 13:05 Metamyelocytes % Cancelled 12/17/17 13:05 Myelocytes % Cancelled 12/17/17 13:05 Promyelocytes % Cancelled 12/17/17 13:05 Blast Cells % Cancelled 12/17/17 13:05 Plasma Cell % (Manual) Cancelled 12/17/17 13:05 Nucleated RBC % Cancelled 12/17/17 13:05 Hypersegmented Polys Cancelled 12/17/17 13:05 Smudge Cells Cancelled 12/17/17 13:05 Toxic Granulation Cancelled 12/17/17 13:05 Dohle Bodies Cancelled 12/17/17 13:05 Aaliyah Rods Cancelled 12/17/17 13:05 Platelet Estimate Cancelled 12/17/17 13:05 Plt Clumps, EDTA Cancelled 12/17/17 13:05 Large Platelets Cancelled 12/17/17 13:05 Giant Platelets Cancelled 12/17/17 13:05 RBC Morphology Cancelled 12/17/17 13:05 Polychromasia Cancelled 12/17/17 13:05 Hypochromasia (manual) Cancelled 12/17/17 13:05 Poikilocytosis (manual Cancelled 12/17/17 13:05 Basophilic Stippling Cancelled 12/17/17 13:05 Anisocytosis (manual) Cancelled 12/17/17 13:05 Microcytosis (manual) Cancelled 12/17/17 13:05 Macrocytosis (manual) Cancelled 12/17/17 13:05 Spherocytes Cancelled 12/17/17 13:05 Sickle Cells Cancelled 12/17/17 13:05 Target Cells Cancelled 12/17/17 13:05 Tear Drop Cells Cancelled 12/17/17 13:05 Ovalocytes Cancelled 12/17/17 13:05 Stomatocytes Cancelled 12/17/17 13:05 Helmet Cells Cancelled 12/17/17 13:05 Arceo-Carlin Bodies Cancelled 12/17/17 13:05 Charlie Cells Cancelled 12/17/17 13:05 Acanthocytes (Spur) Cancelled 12/17/17 13:05 Rouleaux Cancelled 12/17/17 13:05 Schistocytes Cancelled 12/17/17 13:05 PT 10.8 Seconds (9.8-13.1) 12/17/17 13:14 INR 1.0 (0.9-1.2) 12/17/17 13:14 APTT 23.9 Seconds (25.6-37.1) L 12/17/17 13:14 pCO2 38 mm/Hg (35-45) 12/17/17 13:21 pO2 90 mm/Hg (80-100) 12/17/17 13:21 HCO3 32.1 mmol/L (21-28) H 12/17/17 13:21 ABG pH 7.54 (7.35-7.45) H 12/17/17 13:21 ABG Total CO2 33.7 mmol/L (22-28) H 12/17/17 13:21 ABG O2 Saturation 100.0 % (95-98) H 12/17/17 13:21 ABG O2 Content 14.0 ML/dL (15-23) L 12/17/17 13:21 ABG Base Excess 9.3 mmol/L (-2.0-3.0) H 12/17/17 13:21 ABG Hemoglobin 10.5 g/dL (11.7-17.4) L 12/17/17 13:21 ABG Carboxyhemoglobin 2.4 % (0.5-1.5) H 12/17/17 13:21 POC ABG HHb (Measured) 0.0 % (0.0-5.0) 12/17/17 13:21 ABG Methemoglobin 3.4 % (0.0-3.0) H 12/17/17 13:21 ABG O2 Capacity 14.0 mL/dL (16-24) L 12/17/17 13:21 [place]ob Test Yes 12/17/17 13:21 VBG pH 7.48 (7.32-7.43) H 12/17/17 12:54 VBG pCO2 43 mmHg (40-60) 12/17/17 12:54 VBG HCO3 30.9 mmol/L 12/17/17 12:54 VBG Total CO2 33.3 mmol/L (22-28) H 12/17/17 12:54 VBG O2 Sat (Calc) 100.0 % (40-65) H 12/17/17 12:54 VBG Base Excess 7.7 mmol/L (0.0-2.0) H 12/17/17 12:54 VBG Potassium 4.3 mmol/L (3.6-5.2) 12/17/17 12:54 A-a O2 Difference 12.0 mm/Hg 12/17/17 13:21 Hgb O2 Saturation 94.1 % (95.0-98.0) L 12/17/17 13:21 Sodium 132.0 mmol/L (132-148) 12/17/17 12:54 Chloride 95.0 mmol/L (98-107) L 12/17/17 12:54 Glucose 563 mg/dL (65-105) H* D 12/17/17 12:54 Lactate 3.7 mmol/L (0.7-2.1) H 12/17/17 12:54 FiO2 21.0 % 12/17/17 13:21 Blood Gas Comments Ra21% 12/17/17 13:21 Crit Value Called To Dayanna vickers 12/17/17 13:21 Crit Value Called By Shima 12/17/17 13:21 Crit Value Read Back Y 12/17/17 13:21 Blood Gas Notified Time 1339 12/17/17 13:21 Sodium 138 mmol/l (132-148) 12/19/17 05:00 Potassium 3.7 MMOL/L (3.6-5.0) 12/19/17 05:00 Chloride 102 mmol/L (98-107) 12/19/17 05:00 Carbon Dioxide 25 mmol/L (22-30) 12/19/17 05:00 Anion Gap 15 (10-20) 12/19/17 05:00 BUN 17 mg/dl (7-17) 12/19/17 05:00 Creatinine 0.4 mg/dl (0.7-1.2) L 12/19/17 05:00 Est GFR ( Amer) > 60 12/19/17 05:00 Est GFR (Non-Af Amer) > 60 12/19/17 05:00 POC Glucose (mg/dL) 283 mg/dL (65-110) H 12/19/17 10:49 Random Glucose 296 mg/dL (65-105) H 12/19/17 05:00 Calcium 8.3 mg/dL (8.4-10.2) L 12/19/17 05:00 Total Bilirubin 0.7 mg/dl (0.2-1.3) 12/18/17 05:30 AST 89 U/L (14-36) H D 12/18/17 05:30 ALT 186 U/L (9-52) H 12/18/17 05:30 Alkaline Phosphatase 171 U/L (38-126) H 12/18/17 05:30 Total Protein 6.7 G/DL (6.3-8.2) 12/18/17 05:30 Albumin 3.6 g/dL (3.5-5.0) 12/18/17 05:30 Globulin 3.1 gm/dL (2.2-3.9) 12/18/17 05:30 Albumin/Globulin Ratio 1.1 (1.0-2.1) 12/18/17 05:30 Venous Blood Potassium 4.3 mmol/L (3.6-5.2) 12/17/17 12:54 Urine Color Straw (YELLOW) 12/17/17 13:05 Urine Clarity Clear (Clear) 12/17/17 13:05 Urine pH 7.0 (5.0-8.0) 12/17/17 13:05 Ur Specific [place] 1.026 (1.003-1.030) 12/17/17 13:05 Urine Protein 30 mg/dL (NEGATIVE) 12/17/17 13:05 Urine Glucose (UA) >=500 mg/dL (Normal) 12/17/17 13:05 Urine Ketones Negative mg/dL (NEGATIVE) 12/17/17 13:05 Urine Blood Negative (NEGATIVE) 12/17/17 13:05 Urine Nitrate Negative (NEGATIVE) 12/17/17 13:05 Urine Bilirubin Negative (NEGATIVE) 12/17/17 13:05 Urine Urobilinogen 0.2-1.0 mg/dL (0.2-1.0) 12/17/17 13:05 Ur Leukocyte Esterase Neg [place]/uL (Negative) 12/17/17 13:05 Urine RBC (Auto) 1 /hpf (0-3) 12/17/17 13:05 Urine Microscopic WBC 13 /hpf (0-5) H 12/17/17 13:05 Ur Squamous Epith Cells < 1 /hpf (0-5) 12/17/17 13:05 Urine Bacteria Rare (<OCC) 12/17/17 13:05 Blood Type B POSITIVE 12/17/17 13:09 Antibody Screen Negative 12/17/17 13:09 Crossmatch See Detail 12/17/17 13:09 BBK History Checked Patient has bt 12/17/17 13:09 - Hospital Course Hospital Course: 57 y/o woman w/ pmh of HTN, NIDDM2, stage IV brain cancer w/ metastases admitted for neutropenia. Patient received granix daily with little to no improvement of WBC. Patient also developed spontaneous nose bleed yesterday that did not jeannie w/ manual pressure. Patient was seen by ENT and had nasal passage cauterized and clots removed. Nasal packing was placed. Patient's Hb dropped to 6.8. Patient received 2 units PRBCs. Patient requesting transfer to [place] in [facility]. Patient seen by hematology/oncology and ENT. Patient is stabilized w/ repeat Hb at 8.0. Admitting physician in [place] contacted and is accepting patient. Patient found to have UTI on admission and was started on oral antibiotics. The patient has been seen, examined, and deemed medically fit for transfer to another facility for closer monitoring. Discharge Exam - Head Exam Head Exam: NORMAL INSPECTION, NORMOCEPHALIC - Eye Exam Eye Exam: Normal appearance - ENT Exam ENT Exam: Mucous Membranes Moist Additional comments: no further epistaxis, nasal packing in place in left nostril - Neck Exam Neck exam: Full Rom - Respiratory Exam Respiratory Exam: Clear to PA & Lateral. absent: Accessory Muscle Use, Decreased Breath Sounds, Rales, Rhonchi, Wheezes, Respiratory Distress - Cardiovascular Exam Cardiovascular Exam: REGULAR RHYTHM. absent: Tachycardia - GI/Abdominal Exam GI & Abdominal Exam: Normal Bowel Sounds, Soft. absent: Distended, Tenderness - Extremities Exam Extremities exam: normal inspection - Neurological Exam Neurological exam: Alert, CN II-XII Intact, Oriented x3 - Skin Skin Exam: Dry, Intact, Normal Color, Warm Discharge Plan - Follow Up Plan Condition: FAIR Disposition: OTHER INSTITUTION Instructions: Neutropenia (DC) Referrals: Jana Boss MD [Staff Provider] - Marycarmen HONG,Naseem Yap [Non-Staff] -
[2017-12-19 16:08] VITALS: BP 139/91; PULSE 99; RESP 18; TEMP 99.1
--- NOTE | 2017-12-19 16:19 | CP.PCM.PN ---
Subjective - Date & Time of Evaluation Date of Evaluation: 12/19/17 Time of Evaluation: 16:16 - Subjective Subjective: After pt had the nose bleed which was cauterised and packed by ENT, she was transferred to the telemetry unit. Her hgb was only6.7gms. She 2was transfused 1 unit of platelets ,2 units of packed cells., and her granix was continued. Her Hgb went up to 8.2gms, platelets to 86K, but the wbc are still low inspite of the granix given daily. She is being transferred to [facility] to where her primary physician and oncology are. Objective - Vital Signs/Intake and Output Vital Signs (last 24 hours): Temp Pulse Resp BP Pulse Ox 99.1 F 99 H 18 139/91 H 98 12/19/17 16:07 12/19/17 16:07 12/19/17 16:07 12/19/17 16:07 12/19/17 16:07 - Medications Medications: Current Medications Amlodipine Besylate (Norvasc) 10 mg PO QPM [facility] Last Admin: 12/18/17 18:45 Dose: 10 mg Atorvastatin Calcium (Lipitor) 20 mg PO HS [facility] Last Admin: 12/18/17 21:29 Dose: 20 mg Dexamethasone (Decadron) 2 mg PO BID [facility] Last Admin: 12/19/17 09:04 Dose: 2 mg Dextrose (Dextrose 50% Inj) 0 ml IV STAT PRN; Protocol PRN Reason: Hypoglycemia Protocol Dextrose (Glutose 15) 0 gm PO ONCE PRN; Protocol PRN Reason: Hypoglycemia Protocol Famotidine (Pepcid) 20 mg PO Q12 [facility] Last Admin: 12/19/17 09:04 Dose: 20 mg Glucagon (Glucagen Diagnostic Kit) 0 mg IM STAT PRN; Protocol PRN Reason: Hypoglycemia Protocol Sodium Chloride (Sodium Chloride 0.9%) 1,000 mls @ 100 mls/hr IV .Q10H [facility] Last Admin: 12/19/17 09:05 Dose: 100 mls/hr Cefepime HCl 1 gm/ Sodium (Chloride) 100 mls @ 100 mls/hr IVPB Q12 [facility] PRN Reason: Protocol Last Admin: 12/19/17 15:25 Dose: 100 mls/hr Insulin Detemir (Levemir) 10 units SC [facility] Last Admin: 12/18/17 21:29 Dose: 10 units Insulin Human Lispro (Humalog) 0 units SC ACHS [facility] PRN Reason: Protocol Last Admin: 12/19/17 12:25 Dose: 4 units Levetiracetam (Keppra) 500 mg PO Q12 [facility] Last Admin: 12/19/17 09:06 Dose: 500 mg Losartan Potassium (Cozaar) 25 mg PO DAILY [facility] Last Admin: 12/19/17 09:03 Dose: 25 mg Metformin HCl (Glucophage) 1,000 mg PO BID [facility] Last Admin: 12/19/17 09:03 Dose: 1,000 mg Oxymetazoline HCl (Nasal Decongestant 15 Ml) 2 spr NS Q12 PRN PRN Reason: Nasal congestion Phenylephrine HCl (Osman-Synephrine 1% Nasal [place]) 1 spry SHANICE Q12 PRN PRN Reason: Nasal congestion Sitagliptin Phosphate (Januvia) 50 mg PO DAILY [facility] Last Admin: 12/19/17 09:04 Dose: 50 mg - Labs Labs: 12/19/17 12:10 12/19/17 05:00 PT 10.8 Seconds (9.8-13.1) 12/17/17 13:14 INR 1.0 (0.9-1.2) 12/17/17 13:14 APTT 23.9 Seconds (25.6-37.1) L 12/17/17 13:14
== END 2017-12-19 17:30 | disposition short-term general hospital (02) | DRG 982 ==
LOC: H.ER 11:52 → H.ERHOLD 13:43 → H.MEDSURG1 15:45 → H.TEL 12-18 19:28
PROVIDERS: ADMIT Family Medicine; ATTEND Family Medicine
PROC: 0W3Q7ZZ Control Bleeding in Respiratory Tract, Via Natural or Artificial Opening (ICD-10-PCS; 2017-12-18)
PROC: 2Y41X5Z Packing of Nasal Region using Packing Material (ICD-10-PCS; 2017-12-18)
PROC: 30233N1 Transfusion of Nonautologous Red Blood Cells into Peripheral Vein, Percutaneous Approach (ICD-10-PCS; principal; 2017-12-19)
DX: D70.1 Agranulocytosis secondary to cancer chemotherapy (principal); C79.31 Secondary malignant neoplasm of brain; N39.0 Urinary tract infection, site not specified; T45.1X5A Adverse effect of antineoplastic and immunosuppressive drugs, initial encounter; E11.65 Type 2 diabetes mellitus with hyperglycemia; I10 Essential (primary) hypertension; R04.0 Epistaxis; B96.20 Unspecified Escherichia coli [E. coli] as the cause of diseases classified elsewhere; D61.810 Antineoplastic chemotherapy induced pancytopenia; Z85.3 Personal history of malignant neoplasm of breast

== ENCOUNTER 2018-01-13 11:59 | Emergency (ER) | payer OTHER ==
[2018-01-13 12:04] VITALS: TEMP 99.4
[2018-01-13 14:11] LABS: INR 0.9 (0.9-1.2); PARTIAL THROMBOPLASTIN TIME 23.5 Seconds (25.6-37.1); PROTHROMBIN TIME 9.7 Seconds (9.8-13.1)
[2018-01-13 14:19] LABS: BASO % 0.2 % (0.0-2.0); EOS % 0.1 % (0.0-4.0); LYMPH # 0.7 K/uL (1.0-4.3); LYMPH % 9.1 % (20.0-40.0); MEAN CELL VOLUME 96.8 fl (81.0-99.0); MEAN CORPUSCULAR HEMOGLOBIN 32.2 pg (27.0-31.0); MEAN CORPUSCULAR HGB CONC 33.3 g/dL (33.0-37.0); MEAN PLATELET VOLUME 7.7 fl (7.2-11.7); MONO # 0.6 K/uL (0.0-0.8); MONO % 7.8 % (0.0-10.0); NEUT # 6.6 K/uL (1.8-7.0); NEUT % 82.8 % (50.0-75.0); NRBC % 2.2 % (0.0-0.0); PLATELET COUNT 363 K/uL (130-400); RBC 3.12 Mil/uL (3.80-5.20); RED CELL DISTRIBUTION WIDTH 20.3 % (11.5-14.5)
[2018-01-13 14:47] LABS: ALB/GLOB RATIO 1.6 (1.0-2.1); ALT/SGPT 77 U/L (9-52); AST/SGOT 42 U/L (14-36); BLOOD UREA NITROGEN 14 mg/dl (7-17); GFR AFRICAN-AMERICAN > 60; GFR NON-AFRICAN AMERICAN > 60
--- NOTE | 2018-01-13 14:52 | RAD ---
HISTORY: epistaxis COMPARISON: 06/25/2017 FINDINGS: LUNGS: No focal airspace opacity. PLEURA: No significant pleural effusion identified, no pneumothorax apparent. CARDIOVASCULAR: Normal. OSSEOUS STRUCTURES: No significant abnormalities. VISUALIZED UPPER ABDOMEN: Upper abdomen is suboptimally evaluated. OTHER FINDINGS: None. IMPRESSION: No focal airspace opacity.
--- NOTE | 2018-01-13 15:08 | ED PDOC ---
HPI: Nose Bleed Time Seen by Provider: 01/13/18 12:25 Chief Complaint (Nursing): ENT Problem Chief Complaint (Provider): epistaxis History Per: Patient History/Exam Limitations: no limitations Current Symptoms Are (Timing): Still Present Location Of Bleeding: Left Nare Symptoms Have Been: Continuous Associated Symptoms: denies: Syncope, Lightheadedness, Bleeding From Gums, Nasal Congestion, Nasal Drainage, Other Additional Complaint(s): 57yo female, with stage 4 brain cancer, currently undergoing chemotherapy, presents to ED for evaluation of epistaxis from her left nare, now in her right as well and going into her throat. Patient states she had a similar episode in November 2017 when it was found that she had low platelets, which was attributed to chemotherapy. Patient states all her care is at [facility] and she had to be transferred there in November due to the nosebleed; patient states she still is on her chemotherapy regiment. Otherwise, patient denies any trauma, weakness, lightheadedness, dizziness, headache, chest pain, fever, or URI symptoms. Past Medical History Reviewed: Historical Data, Nursing Documentation, Vital Signs Vital Signs: Last Vital Signs Temp 99.4 F 01/13/18 12:03 Pulse 90 01/13/18 12:03 Resp 21 01/13/18 12:03 BP 155/81 H 01/13/18 12:03 Pulse Ox 100 01/13/18 12:03 - Medical History PMH: Anemia, Diabetes, HTN Denies: HIV, Chronic Kidney Disease - Surgical History Surgical History: Cholecystectomy - Family History Family History: States: Unknown Family Hx - Home Medications Home Medications: Ambulatory Orders Medication Instructions Recorded Aspirin [Ecotrin] 81 mg PO DAILY 12/17/17 Dexamethasone [Decadron] 2 mg PO BID 12/17/17 Famotidine [Pepcid] 20 mg PO Q12 12/17/17 MetFORMIN [glucoPHAGE] 1,000 mg PO BID 12/17/17 Olmesartan Medoxomil [Benicar] 10 mg PO DAILY 12/17/17 Rosuvastatin Calcium [Crestor] 10 mg PO HS 12/17/17 SITagliptin [Januvia] 50 mg PO DAILY 12/17/17 amLODIPine [Norvasc] 10 mg PO QPM 12/17/17 levETIRAcetam [Keppra] 500 mg PO Q12 12/17/17 Cephalexin [Keflex] 500 mg PO Q6 #28 capsule 01/13/18 - Allergies Allergies/Adverse Reactions: Allergies Allergy/AdvReac Type Severity Reaction Status Date / Time No Known Allergies Allergy Verified 06/25/17 19:43 Review of Systems ROS Statement: Except As Marked, All Systems Reviewed And Found Negative Constitutional: Negative for: Fever, Chills, Weakness ENT: Positive for: Nose Discharge. Negative for: Nose Congestion Cardiovascular: Negative for: Light Headedness Respiratory: Negative for: Cough Neurological: Negative for: Headache, Dizziness Physical Exam - Reviewed Nursing Documentation Reviewed: Yes Vital Signs Reviewed: Yes - Physical Exam Comments: GENERAL APPEARANCE: Patient is awake, alert, oriented x 3, in no acute distress. SKIN: Warm, dry; (-) cyanosis. EYES: (-) conjunctival pallor. ENMT: (+) Active bleeding from left nare, (+) blood noted to the pharynx. NECK: (-) tenderness, (-) stiffness, (-) lymphadenopathy. CHEST AND RESPIRATORY: (-) rhonchi, (-) rales, (-) wheezes, (-) pleural rub; breath sounds equal bilaterally. HEART AND CARDIOVASCULAR: (-) irregularity; (-) murmur, (-) gallop. ABDOMEN AND GI: Soft; (-) tenderness. EXTREMITIES: (-) deformity; (-) edema. NEURO AND PSYCH: Mental status as above. Cranial nerves grossly intact; strength symmetric. - Laboratory Results Result Diagrams: 01/13/18 13:57 01/13/18 13:57 - ECG O2 Sat by Pulse Oximetry: 100 (RA) Pulse Ox Interpretation: Normal Medical Decision Making Medical Decision Making: Impression: Epistaxis Plan: -- labs -- EKG Progress: Anterior-posterior rapid rhino nasal packing applied to left nare to control bleeding by MATA. CXR : NAD, as read by MATA EKG : SR with occasional PVCs, LVH, no acute ST changes, as read by MATA Lab reviewed : hgb 10 / hct 30, plt 363, K 3.1 On re-evaluation, patient reports improvement of symptoms, denies any headache, dizziness, CP or SOB. On exam, patient remains AAOx3, in no acute distress, with no active bleeding from both nares and no blood noted to the pharynx. BP 155/110 P 100. Patient reports that she has not taken any of her BP medications yet as of today. Patient medicated with norvasc 10 mg PO, KCl 40 mEq PO, and keflex 500 mg PO. Diagnostic results d/w the patient in great detail. Diagnosis of epistaxis d/w the patient. Based on history, exam and diagnostic results, plan will be for outpatient follow up. Patient instructed to follow-up with ENT in 1-2 days without fail. Advised to take medication as prescribed. Return to the emergency room at any time for any new or worsening symptoms. Patient states she fully agrees with and understands discharge instructions. States that she agrees with the plan and disposition. Verbalized and repeated discharge instructions and plan. I have given the patient opportunity to ask any additional questions. Scribe Attestation: Documented by Stefani Jain acting as a scribe for Katy Fiore PA-C. Provider Scribe Attestation: All medical record entries made by the Scribe were at my direction and personally dictated by me. I have reviewed the chart and agree that the record accurately reflects my personal performance of the history, physical exam, medical decision making, and the department course for this patient. I have also personally directed, reviewed, and agree with the discharge instructions and disposition. Disposition - Clinical Impression Clinical Impression: Epistaxis - Patient ED Disposition Is Patient to be Admitted: No Counseled Patient/Family Regarding: Studies Performed, Diagnosis, Need For Followup, Rx Given - Disposition Referrals: Shlomo Urena MD [Staff Provider] - Disposition: Routine/Home Disposition Time: 15:45 Condition: STABLE Additional Instructions: Thank you for letting us take care of your child today. Your child was treated for epistaxis. The emergency medical care your child received today was directed towards the acute presenting symptoms. If your child was prescribed any medication, please fill it and give as directed. It may take several days for your jacob symptoms to resolve. Return to the Emergency Department at any time if symptoms worsen, do not improve, or if any other problems arise. Please call one of the physicians/clinics you have been referred to that are listed on the Patient Visit Information form that is included in your discharge packet. Bring any paperwork you were given at discharge with you along with any medications to your follow up visit. Our treatment cannot replace ongoing medical care by a primary care provider (PCP) outside of the emergency department. Thank you for allowing the [facility] team to be part of your care today. Prescriptions: Cephalexin [Keflex] 500 mg PO Q6 #28 capsule Instructions: Nosebleeds (DC) Forms: [email or web address] ([place]) - PA / [employer] / Resident Statement MD/DO has reviewed & agrees with the documentation as recorded.
[2018-01-13 15:09] LABS: ANISOCYTOSIS MODERATE; HYPOCHROMIC SLIGHT; LYMPHOCYTE 7 % (20-50); MONOCYTE 5 % (0-10); NEUTROPHIL 88 % (42-75); NUCLEATED RED BLOOD CELL 3 % (0-0); PLATELET ESTIMATE NORMAL (NORMAL); TOTAL CELLS COUNTED 100
[2018-01-13 15:10] LABS: OVALOCYTES SLIGHT; PLATELET CLUMPS PRESENT; POLYCHROMIC SLIGHT; TEARDROP CELLS SLIGHT
[2018-01-13] MEDS ORDERED: Potassium Chloride 10 mEq ER Tab PO ONE ×2 (15:36→16:01)
[2018-01-13 16:17] VITALS: PULSE 100
[2018-01-13 16:35] VITALS: BP 150/96; RESP 16
[2018-01-13 19:55] VITALS: O2SAT 100
--- NOTE | 2018-01-16 16:42 | CARD ---
APPROVED REPORT Date of service: 01/13/2018 EKG Measurement Heart [id number] <Conclusion> Sinus rhythm with occasional premature ventricular complexes Possible Left atrial enlargement Left ventricular hypertrophy Abnormal ECG
== END 2018-01-13 16:41 | disposition home or self-care (01) ==
LOC: H.ER 11:59
DX: R04.0 Epistaxis (principal); D09.9 Carcinoma in situ, unspecified; E11.9 Type 2 diabetes mellitus without complications; I10 Essential (primary) hypertension; Z79.82 Long term (current) use of aspirin; Z79.84 Long term (current) use of oral hypoglycemic drugs; Z51.11 Encounter for antineoplastic chemotherapy

== ENCOUNTER 2018-02-09 18:17 | Emergency (ER) | payer OTHER ==
[2018-02-09 18:23] VITALS: TEMP 97.9
--- NOTE | 2018-02-09 18:47 | ED PDOC ---
HPI: CCC, URI, Sore Throat Time Seen by Provider: 02/09/18 18:27 Chief Complaint (Nursing): ENT Problem Chief Complaint (Provider): Epistaxis History Per: Patient Additional Complaint(s): 57yo female, with stage 4 brain cancer, completed chemotherapy last week, presents to ED for evaluation of epistaxis from her left nare. Patient states she had a similar episode in November 2017 when it was found that she had low platelets, which was attributed to chemotherapy. Patient states all her care is at [facility] and she had to be transferred there in November due to the nosebleed; patient states she still is on her chemotherapy regiment. Otherwise, patient denies any trauma, weakness, lightheadedness, dizziness, headache, chest pain, fever, or URI symptoms. Past Medical History Vital Signs: Last Vital Signs Temp 97.9 F 02/09/18 18:22 Pulse 107 H 02/09/18 18:22 Resp 18 02/09/18 18:22 BP 153/98 H 02/09/18 18:22 Pulse Ox 98 02/09/18 18:59 - Medical History PMH: Anemia, Diabetes, HTN Denies: HIV, Chronic Kidney Disease - Surgical History Surgical History: Cholecystectomy - Family History Family History: States: Unknown Family Hx - Home Medications Home Medications: Ambulatory Orders Medication Instructions Recorded Aspirin [Ecotrin] 81 mg PO DAILY 12/17/17 Dexamethasone [Decadron] 2 mg PO BID 12/17/17 Famotidine [Pepcid] 20 mg PO Q12 12/17/17 MetFORMIN [glucoPHAGE] 1,000 mg PO BID 12/17/17 Olmesartan Medoxomil [Benicar] 10 mg PO DAILY 12/17/17 Rosuvastatin Calcium [Crestor] 10 mg PO HS 12/17/17 SITagliptin [Januvia] 50 mg PO DAILY 12/17/17 amLODIPine [Norvasc] 10 mg PO QPM 12/17/17 levETIRAcetam [Keppra] 500 mg PO Q12 12/17/17 Cephalexin [Keflex] 500 mg PO Q6 #28 capsule 01/13/18 Sodium Chloride [[place] Baby Saline 1 ml SHANICE HS PRN #1 bottle 02/09/18 30 ml] - Allergies Allergies/Adverse Reactions: Allergies Allergy/AdvReac Type Severity Reaction Status Date / Time No Known Allergies Allergy Verified 06/25/17 19:43 - Laboratory Results Result Diagrams: 02/09/18 19:00 - ECG O2 Sat by Pulse Oximetry: 98 Medical Decision Making Medical Decision Making: Silver nitrate used. Monitored in ED for 2 hours, no bleeding. Labs reviewed Disposition - Clinical Impression Clinical Impression: Epistaxis - Disposition Condition: GOOD Prescriptions: Sodium Chloride [[place] Baby Saline 30 ml] 1 ml SHANICE HS PRN #1 bottle PRN Reason: Nasal Congestion Instructions: Nosebleeds Forms: [facility] (Occitan)
[2018-02-09 19:10] LABS: BASO % 0.4 % (0.0-2.0); LYMPH # 0.6 K/uL (1.0-4.3); LYMPH % 10.1 % (20.0-40.0); MEAN CELL VOLUME 95.2 fl (81.0-99.0); MEAN CORPUSCULAR HGB CONC 32.6 g/dL (33.0-37.0); MEAN PLATELET VOLUME 7.7 fl (7.2-11.7); MONO # 0.3 K/uL (0.0-0.8); MONO % 6.1 % (0.0-10.0); NEUT # 4.7 K/uL (1.8-7.0); NEUT % 83.4 % (50.0-75.0); NRBC % 0.5 % (0.0-0.0); RBC 3.55 Mil/uL (3.80-5.20); RED CELL DISTRIBUTION WIDTH 19.2 % (11.5-14.5); WHITE BLOOD COUNT 5.7 K/uL (4.8-10.8)
[2018-02-09] MEDS ORDERED: Silver Nitrate Topical - Stick ONE (19:20)
[2018-02-09 19:22] LABS: PARTIAL THROMBOPLASTIN TIME 24.1 Seconds (25.6-37.1)
[2018-02-09 19:25] LABS: INR 0.9
[2018-02-09 20:20] VITALS: BP 152/99; PULSE 90; RESP 16; O2SAT 95
[2018-02-09 20:31] LABS: BLOOD UREA NITROGEN 18 mg/dl (7-17); GFR AFRICAN-AMERICAN > 60; GFR NON-AFRICAN AMERICAN > 60
[2018-02-09 20:32] LABS: ALB/GLOB RATIO 1.7 (1.0-2.1); ALBUMIN 4.2 g/dL (3.5-5.0); ALT/SGPT 101 U/L (9-52); AST/SGOT 60 U/L (14-36); CALCIUM 9.4 mg/dL (8.4-10.2)
--- NOTE | 2018-02-10 07:56 | CARD ---
APPROVED REPORT Date of service: 02/09/2018 <Conclusion> Normal sinus rhythm Voltage criteria for left ventricular hypertrophy Abnormal ECG
--- NOTE | 2018-02-10 09:11 | RAD ---
Date of service: 02/09/2018 PROCEDURE: CHEST RADIOGRAPH, 1 VIEW HISTORY: med screening COMPARISON: None available. FINDINGS: LUNGS: Stable fibrosis is minimal at the mid left lung zone laterally. No acute airspace disease identified bilaterally. PLEURA: No pneumothorax or pleural fluid seen. CARDIOVASCULAR: Normal. OSSEOUS STRUCTURES: No significant abnormalities. VISUALIZED UPPER ABDOMEN: Elevated right hemidiaphragm reiterated. OTHER FINDINGS: None. IMPRESSION: No interval acute cardiopulmonary disease appreciated. Stable elevated right hemidiaphragm.
== END 2018-02-09 20:24 | disposition home or self-care (01) ==
LOC: H.ER 18:17
DX: R04.0 Epistaxis (principal); C71.9 Malignant neoplasm of brain, unspecified; D69.6 Thrombocytopenia, unspecified; E11.9 Type 2 diabetes mellitus without complications; I10 Essential (primary) hypertension; Z79.82 Long term (current) use of aspirin; Z79.84 Long term (current) use of oral hypoglycemic drugs

== ENCOUNTER 2018-02-13 11:43 | Emergency (ER) | payer OTHER ==
--- NOTE | 2018-02-13 12:30 | ED PDOC ---
HPI: Nose Bleed Time Seen by Provider: 02/13/18 12:23 Chief Complaint (Nursing): ENT Problem Chief Complaint (Provider): Epistaxis History Per: Patient History/Exam Limitations: no limitations Onset/Duration Of Symptoms: Hrs Location Of Bleeding: Left Nare Symptoms Have Been: Continuous Associated Symptoms: denies: Syncope, Lightheadedness, Nasal Congestion, Nasal Drainage Additional Complaint(s): 57yo female, with stage 4 brain cancer, last chemotherapy 02/11/18, presents to ED for evaluation of epistaxis from her left nare. Patient states she had a similar episode in November 2017 when it was found that she had low platelets, which was attributed to chemotherapy. Patient states all her care is at [facility], neurologist: Dr Vega. Patient was last seen in ED on 02/08/18 for similar symptoms. Patient notes the bleeding has slowed down since arrival in ED. Otherwise, patient denies any trauma, weakness, lightheadedness, dizziness, headache, chest pain, fever, or URI symptoms. Past Medical History Reviewed: Historical Data, Nursing Documentation, Vital Signs Vital Signs: Last Vital Signs Temp 99.2 F 02/13/18 11:50 Pulse 99 H 02/13/18 11:50 Resp 20 02/13/18 11:50 BP 153/99 H 02/13/18 11:50 Pulse Ox 99 02/13/18 11:50 - Medical History PMH: Anemia, Diabetes, HTN - Surgical History Surgical History: Appendectomy, Cholecystectomy Other surgeries: hysterectomy - Family History Family History: States: Unknown Family Hx - Home Medications Home Medications: Ambulatory Orders Medication Instructions Recorded Aspirin [Ecotrin] 81 mg PO DAILY 12/17/17 Dexamethasone [Decadron] 2 mg PO BID 12/17/17 Famotidine [Pepcid] 20 mg PO Q12 12/17/17 MetFORMIN [glucoPHAGE] 1,000 mg PO BID 12/17/17 Olmesartan Medoxomil [Benicar] 10 mg PO DAILY 12/17/17 Rosuvastatin Calcium [Crestor] 10 mg PO HS 12/17/17 SITagliptin [Januvia] 50 mg PO DAILY 12/17/17 amLODIPine [Norvasc] 10 mg PO QPM 12/17/17 levETIRAcetam [Keppra] 500 mg PO Q12 12/17/17 Cephalexin [Keflex] 500 mg PO Q6 #28 capsule 01/13/18 Sodium Chloride [[place] Baby Saline 1 ml SHANICE HS PRN #1 bottle 02/09/18 30 ml] - Allergies Allergies/Adverse Reactions: Allergies Allergy/AdvReac Type Severity Reaction Status Date / Time No Known Allergies Allergy Verified 02/13/18 11:50 Review of Systems ROS Statement: Except As Marked, All Systems Reviewed And Found Negative ENT: Positive for: Other (epistaxis) Physical Exam - Reviewed Nursing Documentation Reviewed: Yes Vital Signs Reviewed: Yes - Physical Exam Comments: GENERAL APPEARANCE: Patient is awake, alert, oriented x 3, in no acute distress. Resting comfortably. SKIN: Warm, dry; (-) cyanosis. NECK: Supple, FROM HENT: (-) conjunctival injection. Oropharynx: clear, uvula midline (-) tonsillar exudates, (-) erythema. Airway: patent (-) stridor, (-) hoarseness. Mucous membranes moist. Nares: Dried blood to bilateral nares. (-) active bleeding, (-) tenderness. CARDIOVASCULAR: Normal rate and rhythm. CHEST: (-) rales, (-) wheezing, (-) dyspnea, Breath sounds equal bilaterally. Respirations even and nonlabored. NEURO: Mental status: Patient is alert, oriented, and with normal strength and tone. Gait steady, speech clear (-) facial asymmetry. - Laboratory Results Result Diagrams: 02/13/18 13:40 02/13/18 13:40 - ECG O2 Sat by Pulse Oximetry: 99 (RA) Pulse Ox Interpretation: Normal Medical Decision Making Medical Decision Making: Initial Impression: Epistaxis Initial Plan: * BMP * IV access * CBC * PTT * INR Time: 1256 --Shortly after examination, patient had active bleeding from left nare. Treated with neosynephrine to affected area. Visualized bleeding site at 3 o' clock position in left nare. No active bleeding in right nare. Cauterization performed with silver nitrate by Gabe KATZ. Patient will be observed in ED for further bleeding. Time: 1340 On re-evaluation, patient with resolution of epistaxis. Resting comfortably with no additional complaints. Pending labs. Time: 1445 Patient reports no epistaxis since silver nitrate used. Labs reviewed, no significant difference from prior labs last week. Glucose 286 but patient states recently her sugar is normally in the 400s. She has not taken her DM medicines yet today. 4units insulin for subcutaneous administration ordered. Time: 1540 Repeat Accucheck: 246 Repeat BP: 143/91 Repeat HR: 80 Patient observed in ED for 4 hours with no recurrence of epistaxis. Patient requesting to go home at this time. On re-evaluation, patient reports improvement of symptoms. On exam, patient remains AAOx3, in no acute distress. Lungs clear to auscultation, cardiac RRR, abdomen soft, non-tender, repeat neuro exam shows no focal findings. Vitals stable. Lab/Diagnostic results d/w the patient in great detail. Diagnosis of epistaxis, hyperglycemia d/w the patient. Based on history, exam and diagnostic results, plan will be for outpatient follow up. Patient instructed to follow-up with pmd / referral provided / the clinic in 1- 2 days without fail. Advised to take medication as prescribed. Return to the emergency room at any time for any new or worsening symptoms. Patient states she fully agrees with and understands discharge instructions. States that she agrees with the plan and disposition. Verbalized and repeated discharge instructions and plan. I have given the patient opportunity to ask any additional questions. Scribe Attestation: Documented by Melody Guzman, acting as a scribe for Arlet Bernal PA-C. Provider Scribe Attestation: All medical record entries made by the Scribe were at my direction and personally dictated by me. I have reviewed the chart and agree that the record accurately reflects my personal performance of the history, physical exam, medical decision making, and the department course for this patient. I have also personally directed, reviewed, and agree with the discharge instructions and disposition. Disposition - Clinical Impression Clinical Impression: Epistaxis, Hyperglycemia - Patient ED Disposition Is Patient to be Admitted: No Counseled Patient/Family Regarding: Studies Performed, Diagnosis, Need For Followup - Disposition Referrals: Shlomo Urena MD [Staff Provider] - Disposition: Routine/Home Disposition Time: 15:55 Condition: FAIR Additional Instructions: The emergency medical care you received today was directed at your acute symptoms. If you were prescribed any medication, please fill it and take as directed. It may take several days for your symptoms to resolve. Return to the Emergency Department if your symptoms worsen, do not improve, or if you have any other problems. Please contact your doctor in 2 days for re-evaluation and follow up / or call one of the physicians/clinics you have been referred to that are listed on the Patient Visit Information form that is included in your discharge packet. Bring any paperwork you were given at discharge with you along with any medications you are taking to your follow up visit. Our treatment cannot replace ongoing medical care by a primary care provider (PCP) outside of the emergency department. Instructions: Nosebleeds, Hyperglycemia, Adult, The ABCs of Diabetes, Diabetes and Diet Forms: [employer] (Sinhala) Print Language: TUVALUAN - POA Present On Arrival: Poor Glycemic Control Results - Lab Results Lab Results: 02/13/18 02/13/18 02/13/18 13:40 13:40 13:40 WBC 7.6 RBC 3.46 L Hgb 10.8 L Hct 32.5 L MCV 94.1 MCH 31.2 H MCHC 33.2 RDW 19.5 H Plt Count 216 MPV 7.4 Neut % (Auto) 89.8 H Lymph % (Auto) 6.8 L Mclennan % (Auto) 3.0 Eos % (Auto) 0.0 Baso % (Auto) 0.4 Neut # (Auto) 6.8 Lymph # (Auto) 0.5 L Mclennan # (Auto) 0.2 Eos # (Auto) 0.0 Baso # (Auto) 0.0 Neutrophils % (Manual) Pending Lymphocytes % (Manual) Pending Monocytes % (Manual) Pending Platelet Estimate Pending PT 10.1 INR 0.9 APTT 25.1 L Sodium 137 Potassium 4.3 Chloride 101 Carbon Dioxide 25 Anion Gap 15 BUN 16 Creatinine 0.4 L Est GFR ( Amer) > 60 Est GFR (Non-Af Amer) > 60 Random Glucose 286 H Calcium 9.1
[2018-02-13] MEDS ORDERED: Phenylephrine 0.5% Nasal Spray NAS ONE (12:48)
[2018-02-13] MEDS ORDERED: Silver Nitrate Topical - Stick TOP ONE (12:56)
[2018-02-13 13:51] LABS: BASO % 0.4 % (0.0-2.0); HEMOGLOBIN 10.8 g/dL (12.0-16.0); LYMPH # 0.5 K/uL (1.0-4.3); LYMPH % 6.8 % (20.0-40.0); MEAN CELL VOLUME 94.1 fl (81.0-99.0); MEAN CORPUSCULAR HEMOGLOBIN 31.2 pg (27.0-31.0); MEAN CORPUSCULAR HGB CONC 33.2 g/dL (33.0-37.0); MEAN PLATELET VOLUME 7.4 fl (7.2-11.7); MONO # 0.2 K/uL (0.0-0.8); NEUT # 6.8 K/uL (1.8-7.0); NEUT % 89.8 % (50.0-75.0); NRBC % 1.4 % (0.0-0.0); PLATELET COUNT 216 K/uL (130-400); RBC 3.46 Mil/uL (3.80-5.20); RED CELL DISTRIBUTION WIDTH 19.5 % (11.5-14.5); WHITE BLOOD COUNT 7.6 K/uL (4.8-10.8)
[2018-02-13 13:56] LABS: INR 0.9; PROTHROMBIN TIME 10.1 Seconds (9.8-13.1)
[2018-02-13 13:59] LABS: PARTIAL THROMBOPLASTIN TIME 25.1 Seconds (25.6-37.1)
[2018-02-13 14:01] LABS: BLOOD UREA NITROGEN 16 mg/dl (7-17); CALCIUM 9.1 mg/dL (8.4-10.2); GFR AFRICAN-AMERICAN > 60; GFR NON-AFRICAN AMERICAN > 60
[2018-02-13] MEDS ORDERED: Insulin Regular 100 units/ml IV STA (14:39)
[2018-02-13] MEDS ORDERED: Insulin Regular 100 units/ml SC STA (14:57)
[2018-02-13] MEDS ORDERED: Insulin Regular 100 units/ml ONE (15:07)
[2018-02-13 15:56] LABS: BANDS 2 % (0-2); LYMPHOCYTE 7 % (20-50); MONOCYTE 3 % (0-10); NEUTROPHIL 88 % (42-75); NUCLEATED RED BLOOD CELL 1 % (0-0); TOTAL CELLS COUNTED 100
[2018-02-13 15:57] LABS: ANISOCYTOSIS SLIGHT; HYPOCHROMIC SLIGHT; PLATELET ESTIMATE NORMAL (NORMAL); TOXIC GRANULATION PRESENT
[2018-02-13 16:16] VITALS: BP 143/91; PULSE 80; RESP 19; TEMP 97
[2018-02-18 00:51] VITALS: O2SAT 99
== END 2018-02-13 16:17 | disposition home or self-care (01) ==
LOC: H.ER 11:43
DX: R04.0 Epistaxis (principal); E11.65 Type 2 diabetes mellitus with hyperglycemia; Z79.84 Long term (current) use of oral hypoglycemic drugs; C71.9 Malignant neoplasm of brain, unspecified; I10 Essential (primary) hypertension